=== PATIENT | female | born 1970 | race Caucasian/White ===

== ENCOUNTER 2024-09-30 12:25 | Inpatient (IN) ==
--- NOTE | 2024-09-30 13:06 | Emergency Department Note ---
Impression & Plan Ambulatory dysfunction, Encounter for rehabilitation evaluation ED Provider Note CHIEF COMPLAINT: Failure to thrive HISTORY OF PRESENTING ILLNESS: The patient is a 54-year-old female who arrives to the emergency department for evaluation of failure to thrive. The patient's daughter is at bedside, and states that the patient has unable to get around. She currently has urinary tract infection, and she "needs placed in a rehab.". She is currently in a walking boot due to an orthopedic surgery at [address], where she is to remain nonweightbearing for 10 weeks. She reports this was approximately 4 weeks ago. She states she was [facility], however she felt the care was unacceptable and signed out AMA. She states this occurred on Tuesday. She reports she has been having home health visit, who stated it is unsafe for her to be at home due to her nonweightbearing status. She reports she went to [facility], who was not able to place her in a skilled facility, and discharged her home. She states she was informed by her home health to visit a different medical system, for help. She states she is here today for placement, with no other complaints. REVIEW OF SYSTEMS: See HPI for pertinent positives and pertinent negatives. ALLERGIES: See below MEDICATIONS: See below PAST MEDICAL HISTORY: See below PHYSICAL EXAM: VITALS: Vitals are noted on the nurse's note and reviewed by myself. Vital signs stable. GENERAL: 54-year-old female, in no acute distress, nondiaphoretic, well- developed well-nourished. SKIN: The skin was without rashes, erythema, edema, or bruising. HEAD: Normocephalic atraumatic. HEART: Regular rate and rhythm without murmurs gallops or rubs. LUNGS: Clear to auscultation bilaterally without wheezes, rales or rhonchi. No retractions or accessory muscle use. ABDOMEN: Positive bowel sounds x 4. Soft, nontender, without masses or organomegaly. Caballero sign negative. No guarding or rebound tenderness. MUSCULOSKELETAL: Walking boot in place to the left lower extremity, no TTP, no erythema, edema, present. NEURO: Patient was alert and oriented to person place and time. No focal neurological deficits. DIFFERENTIAL DIAGNOSIS: Ambulatory dysfunction, inability to perform ADLs, unsafe living conditions, as well as other pathologies. ED COURSE AND MEDICAL DECISION MAKING: HISTORY FROM INDEPENDENT HISTORIAN: Daughter at bedside as secondary historian. INTERPRETATION OF LABS: I interpreted the labs with full lab results as below in the lab section of this note. Pertinent lab results discussed in the MDM section below. INTERPRETATION OF IMAGING: Imaging studies were interpreted by myself and read by radiology as per the imaging section of this note. MDM SUMMARY: The patient is a pleasant 54-year-old female who arrives to the emergency department for evaluation of the above-stated complaint. Initial workup was performed in triage including a saline lock, CBC, CMP, PT/INR, PTT, troponin, TSH, magnesium, chest x-ray, and EKG. Lab work is unremarkable. Urinalysis negative for infection. Chest x-ray imaging shows no acute cardiopulmonary process per my interpretation. EKG shows normal sinus and rate of 60 bpm, with no ST elevation depression or ectopy. No previous for comparison. The patient was able to successfully pass an ambulatory trial, with a walker in her walking boot. Upon daughter's arrival, she states the patient is to be nonweightbearing, although placed in a walking boot by orthopedic surgery. She reports she would like the patient admitted, for placement, and that a pen[facility]entiary facility. I spoke with Dr. Malcolm from the [facility], hospitalist services, who agreed to accept the patient under his care. Please refer to his documentation for further patient workup. DIAGNOSIS: Ambulatory dysfunction, rehab placement The chart was completed utilizing [employer] Speech voice recognition software. Grammatical errors, random word insertions, pronoun errors, and incomplete sentences are an occasional consequence of this system due to software limitations, ambient noise, and hardware issues. Any formal questions or concerns about the content, text, or information contained within the body of this dictation should be directly addressed to the provider for clarification. Past Med/Surg History Problem List (Updated 09/30/24 @ 19:15 by SHERRILL Stallworth) Encounter for rehabilitation evaluation (Acute) Ambulatory dysfunction (Acute) Social History Smoking Status: Never smoker Preferred Language: Syrian Feels Safe at Home: Yes Allergies Allergies Allergy/AdvReac Type Severity Reaction Status Date / Time codeine Allergy Severe SHORT OF Verified 09/30/24 16:16 BREATH/ITCHY RASH/"HOT&COLD FEELING" butorphanol [From Stadol] Allergy Intermediate ITCHY/"HOT&COLD Verified 09/30/24 16:16 FEELING" Home Meds Home Medications Medication Instructions Recorded Confirmed acetaminophen 500 mg tablet 1,000 mg PO Q8H PRN Pain 09/30/24 09/30/24 (Tylenol Extra Strength) amlodipine 10 mg tablet 10 mg PO DAILY 09/30/24 09/30/24 cefuroxime axetil 500 mg tablet 500 mg PO BID 09/30/24 09/30/24 enoxaparin 40 mg/0.4 mL 40 mg subcut BID 09/30/24 09/30/24 subcutaneous syringe furosemide 40 mg tablet 40 mg PO DAILY 09/30/24 09/30/24 melatonin 3 mg tablet 3 mg PO HS PRN Sleep 09/30/24 09/30/24 methocarbamol 750 mg tablet 750 mg PO BID PRN MUSCLE SPASMS 09/30/24 09/30/24 metoprolol tartrate 50 mg tablet 50 mg PO BID 09/30/24 09/30/24 omeprazole 20 mg tablet,delayed 20 mg PO DAILY PRN ACID STOMACH 09/30/24 09/30/24 release oxycodone 5 mg tablet 5 mg PO QID PRN Pain 09/30/24 09/30/24 spironolactone 25 mg tablet 25 mg PO DAILY 09/30/24 09/30/24 Results & Data (ED) Vital Signs Vital Signs - 24 hr 09/30/24 12:35 09/30/24 14:29 09/30/24 16:35 Temperature 36.0 C L Temperature Source Temporal Artery Scan Pulse Rate 67 Pulse Rate [Left Finger] 76 78 Pulse Rhythm Regular Pulse Strength Normal Respiratory Rate 20 18 18 Respiratory Effort / Characteristics Non-Labored Spontaneous Non-Labored Spontaneous Non-Labored Spontaneous Respiratory Depth Normal Normal Normal Respiratory Pattern Regular Blood Pressure 138/75 Blood Pressure [Right Arm] 141/66 H 163/79 H Blood Pressure Mean 96 Blood Pressure Mean [Right Arm] 91 107 Blood Pressure Position Sitting Blood Pressure Position [Right Arm] Lying Pulse Oximetry 100 99 98 Oxygen Delivery Method Room Air Room Air Room Air Sepsis Recent Fever Within 48 Hours No Sepsis New/Unexplained Change in Mental Status No Sepsis Action Taken by Nursing No Action Required 09/30/24 18:00 Temperature Temperature Source Pulse Rate Pulse Rate [Left Finger] 68 Pulse Rhythm Pulse Strength Respiratory Rate 16 Respiratory Effort / Characteristics Non-Labored Spontaneous Respiratory Depth Normal Respiratory Pattern Blood Pressure Blood Pressure [Right Arm] 135/59 L Blood Pressure Mean Blood Pressure Mean [Right Arm] 84 Blood Pressure Position Blood Pressure Position [Right Arm] Pulse Oximetry 97 Oxygen Delivery Method Room Air Sepsis Recent Fever Within 48 Hours Sepsis New/Unexplained Change in Mental Status Sepsis Action Taken by Retirement Medications Current Medication List: was personally reviewed by me Laboratory Data Attestation: I reviewed the patient's lab results. 09/30/24 13:12 09/30/24 13:12 Lab Results 09/30/24 09/30/24 09/30/24 Range/Units 13:06 13:12 14:07 WBC 9.06 (4.8-10.8) K/ul RBC 5.01 (4.20-5.40) M/uL Hgb 14.4 (12.0-16.0) g/dl Hct 43.5 (37.0-47.0) % MCV 86.8 (80.0-100.0) fL MCH 28.7 (25.0-34.0) pg MCHC 33.1 (32.0-36.0) g/dL RDW Std Deviation 47.7 H (36.4-46.3) fL RDW Coeff of Linda 14.9 H (11.5-14.5) % Plt Count 317 (130-400) K/uL MPV 9.7 (9.4-12.4) fL Immature Gran % (Auto) 0.3 % Neut % (Auto) 64.1 % Lymph % (Auto) 22.6 % [place] % (Auto) 7.8 % Eos % (Auto) 4.6 % Baso % (Auto) 0.6 % Neut # (Auto) 5.80 (1.40-6.50) K/uL Lymph # (Auto) 2.05 (1.20-3.40) K/uL [place] # (Auto) 0.71 H (0.11-0.59) K/uL Eos # (Auto) 0.42 (0.00-0.50) K/uL Baso # (Auto) 0.05 (0.00-0.20) K/uL Immature Gran # (Auto) 0.03 (0.01-0.20) K/uL PT Cancelled 10.9 INR Cancelled 1.0 APTT Cancelled 24 PTT Ratio Cancelled 0.9 Sodium 139 (136-145) mmol/L Potassium 3.7 (3.5-5.1) mmol/L Chloride 102 (98-107) mmol/L Carbon Dioxide 28 (21-32) mmol/L Anion Gap 9 (3-11) BUN 17 (6-23) mg/dl Creatinine 0.87 (0.6-1.2) mg/dl Est Cr Clr Drug Dosing Not Reportable eGFR 79.12 BUN/Creatinine Ratio 19.5 (10-20) Glucose 108 H (70-99(Fasting)) mg/dl Calcium 9.4 (8.6-10.3) mg/dl Magnesium 2.3 (1.7-2.4) mg/dl Total Bilirubin 0.5 (0.2-1.0) mg/dl AST 20 (13-39) U/L ALT 22 (7-52) U/L Alkaline Phosphatase 99 (34-104) U/L Troponin I High Sens < 2.3 (0-14) pg/ml Total Protein 7.7 (6.0-8.3) gm/dl Albumin 4.5 (3.4-5.0) gm/dl Globulin 3.2 (2.5-4.0) gm/dl Albumin/Globulin Ratio 1.4 (0.9-2) TSH 1.608 (0.300-4.500) uIu/ml Urine Color Yellow Urine Appearance Clear (Clear) Urine pH 5.0 (4.5-7.5) Ur Specific [place] 1.017 (1.000-1.030) Urine Protein Negative (Negative) Urine Glucose (UA) Negative (Negative) Urine Ketones Negative (Negative) Urine Blood Negative (Negative) Urine Nitrite Negative (Negative) Urine Bilirubin Negative (Negative) Urine Urobilinogen Negative (Negative) Ur Leukocyte Esterase Negative (Negative) Imaging Data Attestation: I personally reviewed and interpreted this imaging study as follows: Radiologist's Impression: Chest X-Ray 09/30/24 12:39 INDICATION: Cough. TECHNIQUE: Frontal radiograph of the chest. COMPARISON: None. FINDINGS: Mild cardiomegaly. Pulmonary vasculature appear within normal limits. No infiltrate, pleural effusion or pneumothorax. No acute osseous abnormality evident. IMPRESSION: No acute cardiopulmonary process. Electronically signed by Nilo Barrera 09-30-2024 2:07 PM Discharge Plan Visit Data Chief Complaint: Illness Stated Complaint: FAILURE TO THRIVE, PHYSICAL REHAB,CONGESTION/COUGH ED Provider: Basim Butts ED Midlevel Provider: Deloris Rene Discharge Problem: Ambulatory dysfunction, Encounter for rehabilitation evaluation Forms Stand Alone Forms: [facility], Important Visit Information Prescriptions Prescriptions: No Action furosemide 40 mg tablet 40 mg PO DAILY melatonin 3 mg Tablet 3 mg PO HS PRN (Reason: Sleep) acetaminophen [Tylenol Extra Strength] 500 mg Tablet 1,000 mg PO Q8H PRN (Reason: Pain) spironolactone 25 mg tablet 25 mg PO DAILY methocarbamol 750 mg Tablet 750 mg PO BID PRN (Reason: MUSCLE SPASMS) amlodipine 10 mg tablet 10 mg PO DAILY metoprolol tartrate 50 mg tablet 50 mg PO BID cefuroxime axetil 500 mg tablet 500 mg PO BID Rx Instructions: STARTED 09/28/24 FOR 7 DAYS oxycodone 5 mg tablet 5 mg PO QID PRN (Reason: Pain) enoxaparin 40 mg/0.4 mL syringe 40 mg subcut BID Rx Instructions: PER [facility] AT [facility] omeprazole 20 mg Tablet,Delayed Release (Dr/Ec) 20 mg PO DAILY PRN (Reason: ACID STOMACH) Referrals Referrals: PCP,NO [Physician] -
[2024-09-30 13:18] LABS: Appearance Urine Clear (Clear); Bilirubin Urine Negative (Negative); Blood Urine Negative (Negative); Color Urine Yellow; Glucose Urine UA Negative (Negative); Ketones Urine Negative (Negative); Leukocyte Esterase Urine Negative (Negative); Nitrite Urine Negative (Negative); Protein Urine Negative (Negative); Specific Gravity Urine 1.017 (1.000-1.030); Urobilinogen Urine Negative (Negative)
[2024-09-30 13:31] LABS: Basophils # (auto) 0.05 K/uL (0.00-0.20); Basophils % (auto) 0.6 %; Eosinophils # (auto) 0.42 K/uL (0.00-0.50); Eosinophils % (auto) 4.6 %; Hematocrit (blood only) 43.5 % (37.0-47.0); Hemoglobin 14.4 g/dl (12.0-16.0); Immature Granulocytes # (auto) 0.03 K/uL (0.01-0.20); Immature Granulocytes % (auto) 0.3 %; Lymphocytes # (auto) 2.05 K/uL (1.20-3.40); Lymphocytes % (auto) 22.6 %; Mean Corpuscular Hemoglobin 28.7 pg (25.0-34.0); Mean Corpuscular Hgb Conc 33.1 g/dL (32.0-36.0); Mean Corpuscular Volume 86.8 fL (80.0-100.0); Mean Platelet Volume 9.7 fL (9.4-12.4); Monocytes # (auto) 0.71 K/uL (0.11-0.59); Monocytes % (auto) 7.8 %; Neutrophils % (auto) 64.1 %; Platelet Count 317 K/uL (130-400); RDW Coefficient of Variation 14.9 % (11.5-14.5); RDW Standard Deviation 47.7 fL (36.4-46.3); Red Blood Count 5.01 M/uL (4.20-5.40); White Blood Count 9.06 K/ul (4.8-10.8)
[2024-09-30 13:49] LABS: Alanine Aminotransferase 22 U/L (7-52); Albumin Globulin Ratio 1.4 (0.9-2); Albumin Level 4.5 gm/dl (3.4-5.0); Alkaline Phosphatase 99 U/L (34-104); Anion Gap 9 (3-11); Aspartate Aminotransferase 20 U/L (13-39); BUN Creatinine Ratio 19.5 (10-20); Bilirubin,Total 0.5 mg/dl (0.2-1.0); Blood Urea Nitrogen 17 mg/dl (6-23); Calcium 9.4 mg/dl (8.6-10.3); Carbon Dioxide 28 mmol/L (21-32); Chloride 102 mmol/L (98-107); Globulin 3.2 gm/dl (2.5-4.0); Glucose 108 mg/dl (70-99(Fasting)); Magnesium 2.3 mg/dl (1.7-2.4); Potassium 3.7 mmol/L (3.5-5.1); Sodium 139 mmol/L (136-145); Total Protein 7.7 gm/dl (6.0-8.3)
[2024-09-30 13:55] LABS: Troponin I High Sensitivity < 2.3 pg/ml (0-14)
[2024-09-30 14:04] LABS: Thyroid Stimulating Hormone 1.608 uIu/ml (0.300-4.500)
--- NOTE | 2024-09-30 14:07 | XRay Report ---
INDICATION: Cough. TECHNIQUE: Frontal radiograph of the chest. COMPARISON: None. FINDINGS: Mild cardiomegaly. Pulmonary vasculature appear within normal limits. No infiltrate, pleural effusion or pneumothorax. No acute osseous abnormality evident. IMPRESSION: No acute cardiopulmonary process. Electronically signed by Nilo Barrera 09-30-2024 2:07 PM
[2024-09-30 14:52] LABS: Partial Thromboplastin Ratio 0.9; Partial Thromboplastin Time 24 Seconds (21-31); Prothrombin Time 10.9 Seconds (9.0-12.0)
--- NOTE | 2024-09-30 20:29 | History & Physical Report ---
Date of Service September 30, 2024 Assessment & Plan (1) Ankle fracture: (2) Depression: (3) Hypertension: (4) Venous stasis: (5) DVT prophylaxis: Plan left ankle fracture/nonweightbearingbarbara is not safe at home, appears to require subacute rehab while she is nonweightbearing, and then likely full rehab after. Given that she has a degree of new pain and was trying to not bear weight but also having hard time not doing that once she was home without as much supportcheck x-rays to ensure no RACHAEL hardware fracture/displacement/etc. Her orthopedic follow-up was to be 10/[address] Nilo Singh [facility] orthopedics [phone] we have x-rays will want to review with himif there is sign that she is healing better possibly we could shorten the nonweightbearing time. PT/OT eval and treat. Anticipate SNF. Discussed with patient the unfortunate "lousiness" of the current phase of her situation and offered support and encouragement to try to help her get through it. Continue her home meds for pain control. Given that this orthopedic surgeon has never seen her before, and they are not sure who actually did the surgery, I am not sure if we are able to get the same guidance from him, may require consult for in-house foot and ankle for evaluation depending on her overall situation. depressionbarbara openly discussed a lot with her depressionI offered support and encouragement as well as guidance. Discussed overall management of depression and utilizing skills that she is already working rudy.e. writing about her thoughts and feelingsto try to help improve her situation. Also discussed that currently her situation does have a lot of unfortunate misery to it, and we discussed how to live in the moment not necessarily fight against it whenever it cannot be changed at this time. Outpatient follow-up otherwise. HypertensionHome meds venous stasisshaguilar carries a diagnosis of CHF according to her daughterbut she does not appear to have pulmonary edema/dyspnea/etc.I suspect it is venous stasis. Hold Lasix. Follow calf tendernessI suspect it is all due to venous stasis from immobility, but given her fracture/immobility/etc., in spite of the fact that she is on Lovenox for DVT prophylaxis, check venous Dopplers DVT prophylaxisLovenox dispositionadmit to medical, anticipate SNF on discharge. Admission and Anticipated Discharge Date Admission Date: September 30, 2024 History of Present Illness Chief Complaint: Not safe at home Primary Care Provider: Tiffany Hills PA-C patient is a very pleasant 54-year-old female. She broke her ankle and had surgery at [facility]. She was told she needed to be nonweightbearing for 10 weeks and was sent to SNF. At the SNF she was at, she was getting very frustrated she felt like she was not being well cared for, felt like she was spending as much time trying to help take care of her roommate as she was trying to get better, and felt like with nonweightbearing the therapy was not doing much for her. With that, she left SNF AMA, but then quickly at home she/her family realized that this was not going to go well. With nonweightbearing and lack of support, she was concerned about failing, concerned about hurting herself more, [facility] and [facility] her [facility]. She came here to the hospital for further evaluation. She has some pain in her left ankle, not necessarily that much new or different than before but is a little bit hard to tell if maybe it slightly worse after moving, and she has slightly worse bilateral lower extremity edema and calf tenderness. Allergies Allergy/AdvReac Type Severity Reaction Status Date / Time codeine Allergy Severe SHORT OF Verified 09/30/24 16:16 BREATH/ITCHY RASH/"HOT&COLD FEELING" butorphanol [From Stadol] Allergy Intermediate ITCHY/"HOT&COLD Verified 09/30/24 16:16 FEELING" Home Medications Medication Instructions Recorded Confirmed Type acetaminophen 500 mg tablet 1,000 mg PO Q8H PRN Pain 09/30/24 09/30/24 History (Tylenol Extra Strength) amlodipine 10 mg tablet 10 mg PO DAILY 09/30/24 09/30/24 History cefuroxime axetil 500 mg tablet 500 mg PO BID 09/30/24 09/30/24 History enoxaparin 40 mg/0.4 mL 40 mg subcut BID 09/30/24 09/30/24 History subcutaneous syringe furosemide 40 mg tablet 40 mg PO DAILY 09/30/24 09/30/24 History melatonin 3 mg tablet 3 mg PO HS PRN Sleep 09/30/24 09/30/24 History methocarbamol 750 mg tablet 750 mg PO BID PRN MUSCLE SPASMS 09/30/24 09/30/24 History metoprolol tartrate 50 mg tablet 50 mg PO BID 09/30/24 09/30/24 History omeprazole 20 mg tablet,delayed 20 mg PO DAILY PRN ACID STOMACH 09/30/24 09/30/24 History release oxycodone 5 mg tablet 5 mg PO QID PRN Pain 09/30/24 09/30/24 History spironolactone 25 mg tablet 25 mg PO DAILY 09/30/24 09/30/24 History Past Med/Surg History Problem List (Updated 09/30/24 @ 20:25 by Reagan Malcolm DO) DVT prophylaxis Venous stasis Hypertension Depression Ankle fracture Encounter for rehabilitation evaluation (Acute) Ambulatory dysfunction (Acute) Social History Smoking Status: Never smoker Preferred Language: Trinidadian Feels Safe at Home: Yes Review of Systems Review of Systems: All systems reviewed & are unremarkable except as noted in HPI & below Physical Exam Physical Exam: In general she is awake and alert pleasant does get tearful at times. No distress. HEENT normocephalic atraumatic mucous membranes moist. Cardio is regular without rubs murmurs or gallops. Lungs clear to auscultation bilaterally no rales rhonchi wheeze with good effort. Abdomen is soft nondistended nontender no masses organomegaly. Extremities show diffuse bilateral lower extremity probably 12+ edema she has bilateral calf tenderness although not really much erythema may be slightly on the right side but definitely not a hot/tender erythema more of a dull redness, left none. Her left is in a boot and wrapped, removing the boot and wrap shows that the wrap was holding down a lot of edema and she is a bit more edematous proximal, incisions appear to be clean/dry/intact, but she is diffusely tender all around her ankle and her calf. Neuro shows no focal deficits. Results & Data Results & Data Vital Signs (Past 12 Hours) Vital Signs Temp Pulse Pulse Resp BP BP Pulse Ox 09/30/24 19:58 74 09/30/24 18:00 68 16 135/59 L 97 09/30/24 16:35 78 18 163/79 H 98 09/30/24 14:29 76 18 141/66 H 99 09/30/24 12:35 96.8 F L 67 20 138/75 100 O2 Del Method 09/30/24 19:58 09/30/24 18:00 Room Air 09/30/24 16:35 Room Air 09/30/24 14:29 Room Air 09/30/24 12:35 Room Air Code Status & VTE Plan VTE Prophylaxis Plan VTE Prophylaxis will be ordered: Yes PG Care Time/CCT Total # of Minutes Spent Total Time Spent with Patient: Total time spent is greater than 50% in coordination of care (as documented) at patient's floor/unit and/or counseling patient: Coding Level of Care Code 49321 INT INP/OBS CARE 375MIN Diagnoses Ankle fracture S82.899A Depression F32.A Hypertension I10 Venous stasis I87.8 DVT prophylaxis Z29.9
[2024-09-30] MEDS ORDERED: POLYETHYLENE (MIRALAX) 17 GM PACK PO PRN (20:48)
[2024-09-30] MEDS ORDERED: MAGNESIUM HYDROXIDE SUSP 30 ML UDC PO PRN (20:48)
[2024-09-30] MEDS ORDERED: ALUMINUM/MAGNESIUM SUSP 30 ML UDC PO PRN (20:48)
[2024-09-30] MEDS: ENOXAPARIN INJ 40 MG/0.4 ML SYR SQ SCH (22:37)
[2024-09-30] MEDS: METOPROLOL TARTRATE 50 MG TAB PO SCH (22:40)
[2024-09-30] MEDS: MELATONIN 3 MG TAB PO PRN (22:40)
[2024-09-30] MEDS: METHOCARBAMOL 750 MG TABLET PO PRN (22:40)
[2024-09-30] MEDS: cefUROXime axetil 500 MG TAB PO SCH (22:40)
--- NOTE | 2024-09-30 23:20 | XRay Report ---
Exam(s): XR LEFT ANKLE, 3+ views EXAM: XR Left Ankle Complete, 3 or More Views CLINICAL HISTORY: Reason for exam: ankle fracture, new pain, ?periprosthetic fx. TECHNIQUE: Frontal, lateral and oblique views of the left ankle. COMPARISON: No relevant prior studies available. FINDINGS: Bones/joints: A plate and multiple lateral screws bridging a distal fibular fracture with good alignment and positioning. An additional screw bridges a fracture of the medial malleolus. There is good positioning. Fracture lucencies are still evident. Soft tissues: There appears to be generalized soft tissue swelling. IMPRESSION: Previous internal fixation of medial malleolar and distal fibular fractures. Electronically signed by: Janusz Nazario MD 09/30/24 23:19 PM
[2024-10-01] MEDS: ACETAMINOPHEN 500 MG TAB PO PRN (01:07)
[2024-10-01] MEDS: oxyCODONE HCL IR 5 MG TAB (IMMEDIATE RELEASE) PO PRN (01:09)
--- NOTE | 2024-10-01 01:15 | Ultrasound Report ---
EXAM: US venous doppler LE BI CLINICAL HISTORY: Immobility, pain - eval for DVT. TECHNIQUE: Ultrasound examination of bilateral lower extremity veins was performed in real time and duplex. One or more of the following were performed: spectral analysis, resistive index, waveform analysis, and pulsed Doppler. COMPARISON: None. FINDINGS: Inability to tolerate compression in certain areas of bilateral lower extremity due to pain. Normal phasic, non-pulsatile, and spontaneous flow is noted in bilateral common femoral, superficial femoral, popliteal, and peroneal veins. Visualized veins of both lower extremities demonstrate normal compressibility. No sonographic evidence of acute deep vein thrombosis (DVT) is detected in the visualized veins of both lower extremities. The left posterior tibial vein is not examined due to the patient's inability to tolerate augmentation and pressure by the probe. Compression and Augmentation: All evaluated veins compress fully with applied transducer pressure. Augmentation of venous flow is noted with distal compression. Additional Findings: No evidence of intraluminal thrombus. IMPRESSION: No sonographic evidence of acute DVT is detected in above mentioned bilateral examined veins. The left posterior tibial vein is not examined due to the patient's inability to tolerate augmentation and pressure by the probe. Disclaimer: DVT could be missed early in the disease when clot burden is minimal. For patients with moderate and high pretest probability of DVT and negative ultrasound, the [employer] clinical guidelines recommend testing with a D-dimer assay or repeat ultrasound in 5-7 days. If symptoms worsen, the Society of radiologists in ultrasound recommends repeating ultrasound even earlier. Electronically signed by Mahin Pemberton 10-01-2024 01:15 AM
--- NOTE | 2024-10-01 08:16 | Electrocardiogram Report ---
Test Reason : Blood Pressure : */* mmHG Vent. Rate : 68 BPM Atrial Rate : 68 BPM P-R Int : 184 ms QRS Dur : 84 ms QT Int : 392 ms P-R-T Axes : 42 20 25 degrees QTcB Int : 416 ms Normal sinus rhythm Cannot rule out Anterior infarct , age undetermined Abnormal ECG No previous ECGs available Confirmed by Ade Paige (Ivy) on 10/01/2024 8:15:43 AM Referred By: REFERRED SELF Confirmed By: Ade Paige
[2024-10-01] MEDS: amLODIPine BESYLATE 5 MG TAB PO SCH (09:39)
[2024-10-01] MEDS: FUROSEMIDE 40 MG TAB PO SCH (09:39)
[2024-10-01] MEDS: SPIRONOLACTONE 25 MG TAB PO SCH (09:40)
--- NOTE | 2024-10-01 14:29 | Hospitalist Progress Note ---
Date of Service October 01, 2024 Assessment & Plan (1) Ankle fracture: (2) Depression: (3) Hypertension: (4) Venous stasis: (5) DVT prophylaxis: Plan This is a 54 year old female with past medical history of venous stasis, morbid obesity, hypertension who presented to the hospital on 09/30 for a left ankle fracture. #Left ankle fracture Patient w/ ankle fracture ~ 4 weeks ago had surgery at [facility]. Reports she fell down the stairs twice and had extensive surgery. Patient then went to [facility] for rehab and signed out AMA due to not feeling she was being adequately treated. She then returned home and was unable to care for herself so she presented back to [facility]. was unable to find a SNF and patient was discharged home. She presented to our facility with the hopes of SNF rehab placement. Patient unsure of her surgeon but her follow up surgeon is Dr. Nilo Singh @ . - XR sent to his office today, awaiting to hear further recommendations. Left Ankle XR: previous internal fixation of medial malleolar & distal fibular fx Doppler US: negative for DVT. Continue pain management, Ceftin, and PT/OT as tolerated. #Depression Continue to offer support and encouragement. Continue management of depression & utilizing skills (writing out thoughts and feelings) Psych liaison if needed Outpatient follow up. Chronic conditions: HTN: Amlodipine, Metoprolol Venous stasis: Lasix DVT prophylaxis: Lovenox Code: full Patient medically stable for discharge, pending placement. Discussed w/ CM extensively 10/01. Admission and Anticipated Discharge Date Admission Date: September 30, 2024 Supervising Physician Co-Signing Physician Notes Attending Attestation - Chart reviewed, care plan d/w RUFINO Sepulveda. I agree w/ the macias components of her documentation. While here would check 25-OH vit D level due to recent ankle Fx. Dispo planning for placement. Richard Corrales MD Subjective Patient seen and examined this morning. Patient reports to be feeling okay today. She reports that she was experiencing some lower extremity discomfort following her doppler US. She admits to left ankle pain. Reports she was previously at [facility] for rehab and she felt she was not getting properly managed there. Reports that she was helping her roommate more than she was getting rehab. Reports she was stressed and frustrated and ultimately left. Physical Exam Constitutional: WD/WN, vitals as above Eyes: PERRL, conjunctivae normal, anicteric sclerae Respiratory: breathing unlabored Cardiovascular: well perfused Musculoskeletal: no cyanosis or clubbing, extremities motor strength 5/5 Psychiatric: A+Ox3, euthymic affect Results & Data Results & Data Vital Signs (Past 12 Hours) Vital Signs Temp Pulse Resp BP Pulse Ox O2 Del Method 10/01/24 11:21 36.6 C 65 18 106/66 94 Room Air 10/01/24 07:53 36.6 C 55 L 16 112/70 95 Room Air PG Care Time/CCT Total # of Minutes Spent Total Time Spent with Patient: Total time spent is greater than 50% in coordination of care (as documented) at patient's floor/unit and/or counseling patient: Coding Level of Care Code 56321 SUB INP/OBS CARE 235MIN Diagnoses Ankle fracture S82.899A Depression F32.A Hypertension I10 Venous stasis I87.8 DVT prophylaxis Z29.9
[2024-10-02] MEDS: ONDANSETRON INJ 2 MG/ML 2 ML VIAL IV PRN (01:00)
[2024-10-02] MEDS: PROCHLORPERAZINE 5 MG in SYRINGE 4 ML IV ONE (04:10)
--- NOTE | 2024-10-02 14:28 | Hospitalist Progress Note ---
Date of Service October 02, 2024 Assessment & Plan (1) Ankle fracture: (2) Depression: (3) Hypertension: (4) Venous stasis: (5) DVT prophylaxis: Plan This is a 54 year old female with past medical history of venous stasis, morbid obesity, hypertension who presented to the hospital on 09/30 for a left ankle fracture. #Left ankle fracture Patient w/ ankle fracture ~ 4 weeks ago had surgery at [facility]. Reports she fell down stairs twice and had extensive surgery. Patient then went to [facility] for rehab and signed out AMA due to not feeling she was being adequately treated. She then returned home and was unable to care for herself so she presented back to [facility]. was unable to find a SNF and patient was discharged home. She presented to our facility with the hopes of SNF rehab placement. Was able to obtain records from and reviewed operative report on 10/02 - patient had left trimalleolar ankle fx w/ unstable syndesmosis. She underwent ORIF left trimalleolar ankle fx w/o fixation of posterior malleous syndesmotic fixation on 08/29/24 w/ Dr. Reyes. Awaiting to hear further recommendations from Dr. Singh, patient's surgeon she follows w/ in the area . Left Ankle XR: previous internal fixation of medial malleolar & distal fibular fx Doppler US: negative for DVT. Continue pain management, Ceftin, and PT/OT as tolerated. Check vitamin D in AM #Depression Continue to offer support and encouragement. Continue management of depression & utilizing skills (writing out thoughts and feelings) Psych liaison if needed Outpatient follow up. Chronic conditions: HTN: Amlodipine, Metoprolol Venous stasis: Lasix Added Tessalon Perls prn for cough 10/02 at patient request. DVT prophylaxis: Lovenox Code: full Patient medically stable for discharge, pending placement. Admission and Anticipated Discharge Date Admission Date: September 30, 2024 Supervising Physician Co-Signing Physician Notes Attending Attestation - Chart reviewed, care plan d/w RUFINO Sepulveda. I agree w/ the macias components of her documentation. Dispo planning for placement. Richard Corrales MD Subjective Patient seen and examined this morning. Patient reports a cough today that she has been struggling with for awhile. States she had a cold a few weeks ago and the cough has lingered. She reports she typically uses Tessalon Perls at home and it clears it up. She denied any seasonal allergies. Physical Exam Constitutional: WD/WN, vitals as above Eyes: PERRL, conjunctivae normal, anicteric sclerae Respiratory: breathing unlabored Cardiovascular: well perfused Psychiatric: A+Ox3, euthymic affect Results & Data Results & Data Vital Signs (Past 12 Hours) Vital Signs Temp Pulse Resp BP Pulse Ox O2 Del Method 10/02/24 07:24 36.5 C 58 L 14 100/65 95 Room Air PG Care Time/CCT Total # of Minutes Spent Total Time Spent with Patient: Total time spent is greater than 50% in coordination of care (as documented) at patient's floor/unit and/or counseling patient: Coding Level of Care Code 75008 SUB INP/OBS CARE 235MIN Diagnoses Ankle fracture S82.899A Depression F32.A Hypertension I10 Venous stasis I87.8 DVT prophylaxis Z29.9
[2024-10-02] MEDS: BENZONATATE 100 MG CAPSULE PO PRN (15:59)
[2024-10-03 07:37] LABS: Hematocrit (blood only) 37.7 % (37.0-47.0); Hemoglobin 12.5 g/dl (12.0-16.0); Mean Corpuscular Hemoglobin 28.7 pg (25.0-34.0); Mean Corpuscular Hgb Conc 33.2 g/dL (32.0-36.0); Mean Corpuscular Volume 86.7 fL (80.0-100.0); Mean Platelet Volume 9.8 fL (9.4-12.4); Platelet Count 254 K/uL (130-400); RDW Coefficient of Variation 14.7 % (11.5-14.5); RDW Standard Deviation 47.6 fL (36.4-46.3); Red Blood Count 4.35 M/uL (4.20-5.40); White Blood Count 7.06 K/ul (4.8-10.8)
[2024-10-03 07:58] LABS: Creatinine Clr Calc Pharmacy 136.1 ml/min
--- NOTE | 2024-10-03 14:30 | Hospitalist Progress Note ---
Date of Service October 03, 2024 Assessment & Plan (1) Ankle fracture: (2) Depression: (3) Hypertension: (4) Venous stasis: (5) DVT prophylaxis: Plan This is a 54 year old female with past medical history of venous stasis, morbid obesity, hypertension who presented to the hospital on 09/30 for a left ankle fracture. #Left ankle fracture Patient w/ ankle fracture ~ 4 weeks ago had surgery at [facility]. Reports she fell down stairs twice and had extensive surgery. Patient then went to [facility] for rehab and signed out AMA due to not feeling she was being adequately treated. She then returned home and was unable to care for herself so she presented back to . was unable to find a SNF and patient was discharged home. She presented to our facility with the hopes of SNF rehab placement. Was able to obtain records from and reviewed operative report on 10/02 - patient had left trimalleolar ankle fx w/ unstable syndesmosis. She underwent ORIF left trimalleolar ankle fx w/o fixation of posterior malleolus syndesmotic fixation on 08/29/24 w/ Dr. Reyes. Awaiting to hear further recommendations from Dr. Singh, patient's surgeon she follows w/ in the area . Left Ankle XR: previous internal fixation of medial malleolar & distal fibular f x Doppler US: negative for DVT. Continue pain management, Ceftin, and PT/OT as tolerated. Vitamin D level low, started supplementation. #Depression Continue to offer support and encouragement. Continue management of depression & utilizing skills (writing out thoughts and feelings) Psych liaison if needed Outpatient follow up. Chronic conditions: HTN: Amlodipine, Metoprolol (switched dosing to AM and 1800 per patient request) Venous stasis: Lasix Added Tessalon Perls prn for cough 10/02 at patient request. DVT prophylaxis: Lovenox Code: full Patient medically stable for discharge, pending placement. Discussed w/ CM 10/03 Admission and Anticipated Discharge Date Admission Date: September 30, 2024 Supervising Physician Co-Signing Physician Notes Attending Attestation - Chart reviewed, care plan d/w RUFINO Sepulveda. I agree w/ the macias components of her documentation. Dispo planning for placement. Richard Corrales MD Subjective Patient seen and examined this morning. patient reports some nausea today. Reports she typically takes her metoprolol prior to breakfast & dinner. She reports it upsets her stomach if she takes it before bed. Denies any additional complaints. Physical Exam Constitutional: WD/WN, vitals as above Eyes: PERRL, conjunctivae normal, anicteric sclerae Respiratory: breathing unlabored Cardiovascular: well perfused Psychiatric: A+Ox3, euthymic affect Results & Data Results & Data Vital Signs (Past 12 Hours) Vital Signs Temp Pulse Resp BP Pulse Ox O2 Del Method 10/03/24 07:07 36.8 C 57 L 18 131/72 93 Room Air PG Care Time/CCT Total # of Minutes Spent Total Time Spent with Patient: Total time spent is greater than 50% in coordination of care (as documented) at patient's floor/unit and/or counseling patient: Coding Level of Care Code 67714 SUB INP/OBS CARE 2/35MIN Diagnoses Ankle fracture S82.899A Depression F32.A Hypertension I10 Venous stasis I87.8 DVT prophylaxis Z29.9
[2024-10-03] MEDS ORDERED: METOPROLOL TARTRATE 50 MG TAB PO SCH (18:00)
[2024-10-03] MEDS: METOPROLOL TARTRATE 50 MG TAB PO SCH (18:26)
[2024-10-04] MEDS: CHOLECALCIFEROL 125 MCG (5,000 UNITS) TAB PO SCH (08:11)
[2024-10-04] MEDS ORDERED: METOPROLOL TARTRATE 50 MG TAB PO SCH (09:00)
[2024-10-04] MEDS: POLYETHYLENE (MIRALAX) 17 GM PACK PO SCH (11:20)
--- NOTE | 2024-10-04 15:24 | Hospitalist Progress Note ---
Date of Service October 04, 2024 Assessment & Plan (1) Ankle fracture: (2) Depression: (3) Hypertension: (4) Venous stasis: (5) DVT prophylaxis: Plan This is a 54 year old female with past medical history of venous stasis, morbid obesity, hypertension who presented to the hospital on 09/30 for a left ankle fracture. #Left ankle fracture Patient w/ ankle fracture ~ 4 weeks ago had surgery at [facility]. Reports she fell down stairs twice and had extensive surgery. Patient then went to [facility] for rehab and signed out AMA due to not feeling she was being adequately treated. She then returned home and was unable to care for herself so she presented back to . was unable to find a SNF and patient was discharged home. She presented to our facility with the hopes of SNF rehab placement. Was able to obtain records from and reviewed operative report on 10/02 - patient had left trimalleolar ankle fx w/ unstable syndesmosis. She underwent ORIF left trimalleolar ankle fx w/o fixation of posterior malleolus syndesmotic fixation on 08/29/24 w/ Dr. Reyes. Awaiting to hear further recommendations from Dr. Singh, patient's surgeon she follows w/ in the area . Left Ankle XR: previous internal fixation of medial malleolar & distal fibular f x Doppler US: negative for DVT. Continue pain management, Ceftin, and PT/OT as tolerated. Vitamin D level low, started supplementation. #Constipation no BM ~ 3 days Added Miralax BID, can titrate back down to daily once patient begins to move bowels. #Depression Continue to offer support and encouragement. Continue management of depression & utilizing skills (writing out thoughts and feelings) Psych liaison if needed Outpatient follow up. Chronic conditions: HTN: Amlodipine, Metoprolol (switched dosing to AM and 1800 per patient request) Venous stasis: Lasix DVT prophylaxis: Lovenox Code: full Patient medically stable for discharge, pending placement. Admission and Anticipated Discharge Date Admission Date: September 30, 2024 Subjective Patient seen and examined this morning. Patient reports she has not had a BM for about 3 days now. Reports she was on a GI cocktail at rehab. Report some abdominal discomfort secondary to not being able to defecate but denies any other symptoms. Patient reports she is passing gas. Physical Exam Constitutional: WD/WN, vitals as above Eyes: PERRL, conjunctivae normal, anicteric sclerae Respiratory: breathing unlabored Cardiovascular: well perfused Psychiatric: A+Ox3, euthymic affect Results & Data Results & Data Vital Signs (Past 12 Hours) Vital Signs Temp Pulse Resp BP Pulse Ox O2 Del Method 10/04/24 08:13 62 10/04/24 07:35 Room Air 10/04/24 07:17 36.4 C L 55 L 18 116/68 92 Room Air PG Care Time/CCT Total # of Minutes Spent Total Time Spent with Patient: Total time spent is greater than 50% in coordination of care (as documented) at patient's floor/unit and/or counseling patient: Coding Level of Care Code 50557 SUB INP/OBS CARE 2/35MIN Diagnoses Ankle fracture S82.899A Depression F32.A Hypertension I10 Venous stasis I87.8 DVT prophylaxis Z29.9
--- NOTE | 2024-10-05 16:35 | Hospitalist Progress Note ---
Date of Service October 05, 2024 Assessment & Plan (1) Ankle fracture: (2) Depression: (3) Hypertension: (4) Venous stasis: (5) DVT prophylaxis: Plan This is a 54 year old female with past medical history of venous stasis, morbid obesity, hypertension who presented to the hospital on 09/30 for a left ankle fracture. Was able to obtain records from and operative report- patient had left trimalleolar ankle fx w/ unstable syndesmosis. She underwent ORIF left trimalleolar ankle fx w/o fixation of posterior malleolus syndesmotic fixation on 08/29/24 w/ Dr. Reyes. #Left ankle fracture Patient w/ ankle fracture ~ 4 weeks ago had surgery at [facility]. Reports she fell down stairs twice and had extensive surgery. Patient then went to [facility] for rehab and signed out AMA due to not feeling she was being adequately treated. She then returned home and was unable to care for herself so she presented back to . was unable to find a SNF and patient was discharged home. She presented to our facility with the hopes of SNF rehab placement. Left Ankle XR: previous internal fixation of medial malleolar & distal fibular fx Doppler US: negative for DVT. Continue pain management, Ceftin, and PT/OT as tolerated. Vitamin D level low, started supplementation. Called Dr. Singh's office 10/05 to get further recommendations as her non weight bearing status is up on 10/10. Unfortunately even though Dr. Singh saw patient in office ~ 2 weeks ago, he would not provide recommendations and encouraged us to follow with either her primary surgeon in [place]/in house provider. Was able to discuss w/ foot/ankle specialist Dr. Ocampo 10/05 who recommended starting with 25% weight bearing when able and slowly advance each week until full weight bearing in ~ 4 weeks. Plan for repeat x-ray on 10/09 and hopeful to start partial weight bearing on 10/10. Will update PT w/ these recommendations as well. Weight bearing status may be helpful w/ placement. #Constipation BM 10/05, patient reports was hard Miralax once daily, added stool softener once daily encourage PO hydration #Depression Continue to offer support and encouragement. Continue management of depression & utilizing skills (writing out thoughts and feelings) Psych liaison if needed Outpatient follow up. Chronic conditions: HTN: Amlodipine, Metoprolol (switched dosing to AM and 1800 per patient request) Venous stasis: Lasix DVT prophylaxis: Lovenox Code: full Patient medically stable for discharge, pending placement. Admission and Anticipated Discharge Date Admission Date: September 30, 2024 Subjective Patient seen and examined this afternoon. Patient was sitting in her wheel chair at time of encounter. Patient reports no symptoms today, she is hoping she can take a shower. Called Dr. Singh's office who refused to give further recommendations on her ankle status. Discussed plan of care with Dr. Kevon Ocampo today. Results & Data Results & Data Vital Signs (Past 12 Hours) Vital Signs Temp Pulse Resp BP Pulse Ox O2 Del Method 10/05/24 14:33 36.6 C 68 16 121/72 94 Room Air 10/05/24 07:32 Room Air 10/05/24 07:09 36.7 C 68 16 128/69 96 Room Air 10/05/24 06:19 36.8 C 66 16 105/73 95 Room Air PG Care Time/CCT Total # of Minutes Spent Total Time Spent with Patient: Total time spent is greater than 50% in coordination of care (as documented) at patient's floor/unit and/or counseling patient: Coding Level of Care Code 36171 SUB INP/OBS CARE 3/50MIN Diagnoses Ankle fracture S82.899A Depression F32.A Hypertension I10 Venous stasis I87.8 DVT prophylaxis Z29.9
[2024-10-06 07:43] LABS: Hemoglobin 12.7 g/dl (12.0-16.0); Mean Corpuscular Hemoglobin 28.2 pg (25.0-34.0); Mean Corpuscular Hgb Conc 32.6 g/dL (32.0-36.0); Mean Corpuscular Volume 86.5 fL (80.0-100.0); Mean Platelet Volume 9.9 fL (9.4-12.4); Platelet Count 273 K/uL (130-400); RDW Standard Deviation 47.7 fL (36.4-46.3); Red Blood Count 4.51 M/uL (4.20-5.40); White Blood Count 6.35 K/ul (4.8-10.8)
[2024-10-06 07:56] LABS: Creatinine Clr Calc Pharmacy 123.9 ml/min
[2024-10-06] MEDS: DOCUSATE SODIUM 100 MG CAP PO SCH (08:28)
[2024-10-06] MEDS: POLYETHYLENE (MIRALAX) 17 GM PACK PO SCH (08:28)
[2024-10-06] MEDS: PANTOprazole 40 MG TAB PO PRN (08:29)
--- NOTE | 2024-10-06 14:27 | Hospitalist Progress Note ---
Date of Service October 06, 2024 Assessment & Plan (1) Ankle fracture: (2) Depression: (3) Hypertension: (4) Venous stasis: (5) DVT prophylaxis: Plan This is a 54 year old female with past medical history of venous stasis, morbid obesity, hypertension who presented to the hospital on 09/30 for a left ankle fracture. Was able to obtain records from and operative report- patient had left trimalleolar ankle fx w/ unstable syndesmosis. She underwent ORIF left trimalleolar ankle fx w/o fixation of posterior malleolus syndesmotic fixation on 08/29/24 w/ Dr. Reyes. #Left ankle fracture Patient w/ ankle fracture ~ 4 weeks ago had surgery at [facility]. Reports she fell down stairs twice and had extensive surgery. Patient then went to [facility] for rehab and signed out AMA due to not feeling she was being adequately treated. She then returned home and was unable to care for herself so she presented back to . was unable to find a SNF and patient was discharged home. She presented to our facility with the hopes of SNF rehab placement. Left Ankle XR: previous internal fixation of medial malleolar & distal fibular fx Doppler US: negative for DVT. Continue pain management, Ceftin, and PT/OT as tolerated. Vitamin D level low, started supplementation. Was able to discuss w/ foot/ankle specialist Dr. Ocampo 10/05 who recommended starting with 25% weight bearing when able and slowly advance each week until full weight bearing in ~ 4 weeks. Plan for repeat x-ray on 10/09 and hopeful to start partial weight bearing on 10/10. Will plan to update PT w/ these recommendations as well. #Cough Patient w/ dry cough. Reports URI several weeks ago. Tessalon Perles/Mucinex PRN Start Claritin once daily. #Constipation BM 10/05, patient reports was hard Miralax and Colace daily. encourage PO hydration #Depression Continue to offer support and encouragement. Continue management of depression & utilizing skills (writing out thoughts and feelings) Psych liaison if needed Outpatient follow up. Chronic conditions: HTN: Amlodipine, Metoprolol (switched dosing to AM and 1800 per patient request) Venous stasis: Lasix DVT prophylaxis: Lovenox Code: full Patient medically stable for discharge, pending placement. Admission and Anticipated Discharge Date Admission Date: September 30, 2024 Subjective Patient seen and examined this morning. patient reports she did not sleep well because she had been coughing all night. Reports the Tessalon Perles are helpful but only work for a short period of time. She denied any additional complaints. Physical Exam Constitutional: WD/WN, vitals as above Eyes: PERRL, conjunctivae normal, anicteric sclerae Respiratory: normal respiratory effort Cardiovascular: well perfused Psychiatric: A+Ox3, euthymic affect Results & Data Results & Data Vital Signs (Past 12 Hours) Vital Signs Temp Pulse Resp BP Pulse Ox O2 Del Method 10/06/24 08:00 Room Air 10/06/24 07:28 36.7 C 60 18 137/55 L 92 Room Air PG Care Time/CCT Total # of Minutes Spent Total Time Spent with Patient: Total time spent is greater than 50% in coordination of care (as documented) at patient's floor/unit and/or counseling patient: Coding Level of Care Code 32522 SUB INP/OBS CARE 2/35MIN Diagnoses Ankle fracture S82.899A Depression F32.A Hypertension I10 Venous stasis I87.8 DVT prophylaxis Z29.9
[2024-10-06] MEDS: guaiFENesin 600 MG TABCR PO PRN (22:54)
[2024-10-06] MEDS: COUGH DROP (SUGAR FREE) LOZ 24 LOZ/1 BOX BUCCAL PRN (22:54)
[2024-10-07] MEDS: LORATADINE 10 MG TAB PO SCH (08:01)
--- NOTE | 2024-10-07 13:03 | Hospitalist Progress Note ---
Date of Service October 07, 2024 Assessment & Plan (1) Ankle fracture: (2) Depression: (3) Hypertension: (4) Venous stasis: (5) DVT prophylaxis: Plan This is a 54 year old female with past medical history of venous stasis, morbid obesity, hypertension who presented to the hospital on 09/30 for a left ankle fracture. Was able to obtain records from and operative report- patient had left trimalleolar ankle fx w/ unstable syndesmosis. She underwent ORIF left trimalleolar ankle fx w/o fixation of posterior malleolus syndesmotic fixation on 08/29/24 w/ Dr. Reyes. #Left ankle fracture Patient w/ ankle fracture ~ 4 weeks ago had surgery at [facility]. Reports she fell down stairs twice and had extensive surgery. Patient then went to [facility] for rehab and signed out AMA due to not feeling she was being adequately treated. She then returned home and was unable to care for herself so she presented back to . was unable to find a SNF and patient was discharged home. She presented to our facility with the hopes of SNF rehab placement. Left Ankle XR: previous internal fixation of medial malleolar & distal fibular fx Doppler US: negative for DVT. Continue pain management, Ceftin, and PT/OT as tolerated. Vitamin D level low, started supplementation. Was able to discuss w/ foot/ankle specialist Dr. Ocampo 10/05 who recommended starting with 25% weight bearing when able and slowly advance each week until full weight bearing in ~ 4 weeks. Plan for repeat x-ray on 10/09 and hopeful to start partial weight bearing on 10/10. Will plan to update PT w/ these recommendations as well. #Cough Patient w/ dry cough. Reports URI several weeks ago. Tessalon Perles/Mucinex PRN Claritin daily #Constipation Miralax and Colace daily. encourage PO hydration #Depression Continue to offer support and encouragement. Continue management of depression & utilizing skills (writing out thoughts and feelings) Psych liaison if needed Outpatient follow up. Chronic conditions: HTN: Amlodipine, Metoprolol (switched dosing to AM and 1800 per patient request) Venous stasis: Lasix DVT prophylaxis: Lovenox Code: full Patient medically stable for discharge, pending placement. Admission and Anticipated Discharge Date Admission Date: September 30, 2024 Subjective Patient seen and examined this morning. Patient reports some numbness/tingling in her left ankle. Reports it started overnight. Patient also reports she had a "goose egg" bump on the anterior of ankle that was outlined with a marker. Still experiencing dry cough. Physical Exam Constitutional: WD/WN, vitals as above Eyes: PERRL, conjunctivae normal, anicteric sclerae Respiratory: breathing unlabored Cardiovascular: well perfused Musculoskeletal: left ankle w/o erythema or edema. Steri strips in place over incision sites. Can feel sensation appropriately Psychiatric: A+Ox3, euthymic affect Results & Data Results & Data Vital Signs (Past 12 Hours) Vital Signs Temp Pulse Resp BP Pulse Ox O2 Del Method 10/07/24 08:00 Room Air 10/07/24 07:10 36.7 C 77 18 113/69 93 Room Air PG Care Time/CCT Total # of Minutes Spent Total Time Spent with Patient: Total time spent is greater than 50% in coordination of care (as documented) at patient's floor/unit and/or counseling patient: Coding Level of Care Code 73562 SUB INP/OBS CARE 07/28MIN Diagnoses Ankle fracture S82.899A Depression F32.A Hypertension I10 Venous stasis I87.8 DVT prophylaxis Z29.9
--- NOTE | 2024-10-08 10:44 | Electrocardiogram Report ---
Test Reason : Blood Pressure : */* mmHG Vent. Rate : 73 BPM Atrial Rate : 73 BPM P-R Int : 202 ms QRS Dur : 88 ms QT Int : 364 ms P-R-T Axes : 67 16 17 degrees QTcB Int : 401 ms Normal sinus rhythm Cannot rule out Anterior infarct (cited on or before 30-Sep-2024) Abnormal ECG When compared with ECG of 30-Sep-2024 12:56, No significant change was found Confirmed by Frank Fermin ([id number]) on 10/08/2024 10:44:25 AM Referred By: REFERRED SELF Confirmed By: Frank Fermin
--- NOTE | 2024-10-08 15:05 | Hospitalist Progress Note ---
Date of Service October 08, 2024 Assessment & Plan (1) Ankle fracture: (2) Depression: (3) Hypertension: (4) Venous stasis: (5) DVT prophylaxis: Plan This is a 54 year old female with past medical history of venous stasis, morbid obesity, hypertension who presented on 09/30 for placement after recent ankle fracture/hospitalization. Patient had left trimalleolar ankle fx w/ unstable syndesmosis. She underwent ORIF left trimalleolar ankle fx w/o fixation of posterior malleolus syndesmotic fixation on 08/29/24 w/ Dr. Reyes, was discharged to [facility] for rehab and signed out AMA, returned home and was unable to care for herself and went back to [facility], they were unable to find placement for her and she was sent home and then present to [facility] for placement. #Left ankle fracture Left Ankle XR: previous internal fixation of medial malleolar & distal fibular fx. Doppler US: negative for DVT. Continue pain management, Ceftin, and PT/OT as tolerated. Vitamin D level low, started supplementation. Case discussed w/ foot/ankle specialist Dr. Ocampo 10/05 who recommended starting with 25% weight bearing when able and slowly advance each week until full weight bearing in ~ 4 weeks. Plan for repeat x-ray on 10/09 and hopeful to start partial weight bearing on 10/10. Will plan to update PT w/ these recommendations as well. #Cough Patient w/ dry cough. Reports URI several weeks ago. Tessalon Perles/Mucinex PRN Claritin daily #Constipation Miralax and Colace daily. encourage PO hydration #Depression Continue to offer support and encouragement. Continue management of depression & utilizing skills (writing out thoughts and feelings) Psych liaison if needed Outpatient follow up. HTN: Amlodipine, Metoprolol (switched dosing to AM and 1800 per patient request) Venous stasis: Lasix DVT prophylaxis: Lovenox Dispo: Patient medically stable for discharge, pending placement. Admission and Anticipated Discharge Date Admission Date: September 30, 2024 Subjective patient seen sitting up in bed, just initial lunch. Reports sinus congestion that started over the last few days Has a cough but is nonproductive states that most of her mucus is coming from her nose. Reports that she is getting around okay, encouraged out of bed denies pain in her ankle unless being touched Review of Systems Review of Systems: All systems reviewed & are unremarkable except as noted in Subjective Physical Exam Physical Exam: General: NAD, VS as above, obese, sitting up in bed HEENT: + rhinorrhea Resp: normal respiratory effort, lungs clear to auscultation CV: RRR, no murmur, Abd: normal bowel sounds, non tender, no hepatosplenomegaly Extremities: Moves all extremities, left ankle livier wrap removed - no erythema or edema Neuro: A&O x3, Results & Data Results & Data Vital Signs (Past 12 Hours) Vital Signs Temp Pulse Pulse Resp BP BP Pulse Ox 10/08/24 14:39 97.5 F L 61 16 114/72 96 10/08/24 09:13 71 127/64 10/08/24 07:20 10/08/24 07:08 98.6 F 82 16 126/72 92 O2 Del Method 10/08/24 14:39 Room Air 10/08/24 09:13 10/08/24 07:20 Room Air 10/08/24 07:08 Room Air PG Care Time/CCT Total # of Minutes Spent Total Time Spent with Patient: Total time spent is greater than 50% in coordination of care (as documented) at patient's floor/unit and/or counseling patient: Coding Level of Care Code 58384 SUB INP/OBS CARE 07/28MIN Diagnoses Ankle fracture S82.899A Depression F32.A Hypertension I10 Venous stasis I87.8 DVT prophylaxis Z29.9
--- NOTE | 2024-10-09 07:23 | XRay Report ---
EXAM: XR ankle LT 2V CLINICAL HISTORY: Reassess hardware/fx. TECHNIQUE: X-ray images of the left ankle were obtained in anteroposterior (AP) and lateral projections. COMPARISON: Study dated 09/30/2024. FINDINGS: Bone Structure: Internal fixation of comminuted fracture of the distal shaft of fibula and fracture of the medial malleolus with ongoing healing seen as less prominent lucent fracture lines and progressing surrounding sclerosis . Otherwise, bone structure is normal and aligned. No evidence of new fracture or dislocation. Joint Spaces: Joint spaces are normal. No evidence of joint effusion or subluxation. Soft Tissues: Soft tissues appear normal and unremarkable. No soft tissue swelling, calcifications, or foreign bodies noted. Additional Findings: Plantar calceneal spur. No signs of osteoarthritis, lytic or sclerotic lesions. IMPRESSION: 1. Internal fixation of comminuted fracture of the distal shaft of the fibula and fracture of the medial malleolus with ongoing healing. 2. Plantar calceneal spur. Disclaimer: A subtle bone abnormality or fracture may not be readily apparent on X-rays, thus clinical correlation and further imaging including follow-up CT, MRI, or follow-up X-rays are advised as needed. Electronically signed by Mahin Pemberton 10-09-2024 07:22 AM
[2024-10-09 07:48] LABS: Hematocrit (blood only) 39.6 % (37.0-47.0); Mean Corpuscular Hemoglobin 28.3 pg (25.0-34.0); Mean Corpuscular Hgb Conc 32.8 g/dL (32.0-36.0); Mean Corpuscular Volume 86.1 fL (80.0-100.0); Mean Platelet Volume 9.7 fL (9.4-12.4); Platelet Count 264 K/uL (130-400); RDW Standard Deviation 47.3 fL (36.4-46.3); White Blood Count 6.41 K/ul (4.8-10.8)
[2024-10-09 08:50] LABS: Creatinine Clr Calc Pharmacy 134.5 ml/min
--- NOTE | 2024-10-09 11:22 | Orthopedic Consultation ---
Date of Consultation October 09, 2024 Assessment & Plan (1) Ankle fracture: (2) Ambulatory dysfunction: (3) Depression: (4) Hypertension: Plan Yris is a 54-year-old female who is 5 weeks status post ORIF of her left ankle by an outside surgeon. She is admitted to [facility] for ambulatory dysfunction secondary to being unable to care for herself at home after leaving a nursing is medical advice. On physical examination, the patient surgical wounds have healed appropriately. She demonstrates active range of motion without significant pain. Her x-rays demonstrate stable internal fixation. At this point, I believe the patient is still to soon from date of surgery to begin weightbearing. Generally I would have the patient wait at least 6-8 weeks from the date of surgery to determine if progressive weightbearing is appropriate. Given her inability to maintain nonweightbearing at home, I do think that it is reasonable for her to be placed in a nursing or rehab facility. She can follow-up with her index surgeon as scheduled. While she is nonweightbearing, she should continue to receive DVT prophylaxis. She should wear her cam boot while sleeping and at any time while she is moving around, however I do encourage her to come out of it multiple times daily to work on ankle range of motion. If the patient has difficulty returning to see her index surgeon, I would be happy to see her on an outpatient basis. Orders: Nonweightbearing left lower extremity Boot on at all times while out of bed and while sleeping Okay to remove boot to work on ankle range of motion Continue DVT prophylaxis History of Present Illness Reason for Consultation: Left ankle status post ORIF by outside surgeon 09/03/2024, consulted for weightbearing recommendations. Attending Physician: Natalia Cardenas MD History of Present Illness patient is a 54-year-old female who sustained a ankle fracture in early September. She was fixed at [facility] by Dr. Singh on 09/03/2024. Patient was sent to fdc facility after discharge and she was frustrated with the care that she was receiving at that time, she signed out of the nursing facility AGAINST MEDICAL ADVICE and returned home. She had difficulty maintaining her nonweightbearing and did not have much support, so she went to a [facility] facility where she was unable to be placed into a fdc facility and she was sent home. She presented to [facility] for further evaluation. Upon evaluation, she had an ultrasound study done which demonstrated no DVT. She had x-rays done which demonstrated stable internal fixation. Or dysfunction and for nursing facility placement. I was consulted for recommendations as to her weightbearing status. On my evaluation, the patient notes that her ankle overall is doing well. She is practicing range of motion exercises and notes that the swelling is improving. Patient notes that she has a soreness in her ankle but no significant pain at this time. Allergies Allergy/AdvReac Type Severity Reaction Status Date / Time codeine Allergy Severe SHORT OF Verified 09/30/24 16:16 BREATH/ITCHY RASH/"HOT&COLD FEELING" butorphanol [From Stadol] Allergy Intermediate ITCHY/"HOT&COLD Verified 09/30/24 16:16 FEELING" Home Medications Medication Instructions Recorded Confirmed Type acetaminophen 500 mg tablet 1,000 mg PO Q8H PRN Pain 09/30/24 09/30/24 History (Tylenol Extra Strength) amlodipine 10 mg tablet 10 mg PO DAILY 09/30/24 09/30/24 History cefuroxime axetil 500 mg tablet 500 mg PO BID 09/30/24 09/30/24 History enoxaparin 40 mg/0.4 mL 40 mg subcut BID 09/30/24 09/30/24 History subcutaneous syringe furosemide 40 mg tablet 40 mg PO DAILY 09/30/24 09/30/24 History melatonin 3 mg tablet 3 mg PO HS PRN Sleep 09/30/24 09/30/24 History methocarbamol 750 mg tablet 750 mg PO BID PRN MUSCLE SPASMS 09/30/24 09/30/24 History metoprolol tartrate 50 mg tablet 50 mg PO BID 09/30/24 09/30/24 History omeprazole 20 mg tablet,delayed 20 mg PO DAILY PRN ACID STOMACH 09/30/24 09/30/24 History release oxycodone 5 mg tablet 5 mg PO QID PRN Pain 09/30/24 09/30/24 History spironolactone 25 mg tablet 25 mg PO DAILY 09/30/24 09/30/24 History Patient History Social History Smoking Status: Never smoker Hx Alcohol Use: No Hx Substance Use: No Preferred Language: Liberian Communication Ability: Effective Pulverizer Required: No Beliefs That Will Affect Care: None Current Living Situation: Family Feels Safe at Home: Yes Assistive Devices: Walker Review of Systems Review of Systems: All systems reviewed & are unremarkable except as noted in HPI & below Physical Exam Physical Exam: On physical examination, the patient's cam boot was removed and her skin examined. Her wounds have healed nicely without signs, drainage, infection. She demonstrates ankle range of motion to neutral dorsiflexion and 30 degrees plantarflexion. Results & Data Vital Signs (Past 12 Hours) Vital Signs Temp Pulse Resp BP Pulse Ox O2 Del Method 10/09/24 07:28 36.8 C 71 15 127/69 98 Room Air 10/09/24 07:20 Room Air Diagnostic Findings X-rays of the left ankle were personally interpreted and reviewed. These demonstrate stable internal fixation of a comminuted Kang C distal fibula fracture with syndesmotic fixation and medial malleolar fixation.
--- NOTE | 2024-10-09 14:26 | Hospitalist Progress Note ---
Date of Service October 09, 2024 Assessment & Plan (1) Ankle fracture: (2) Depression: (3) Hypertension: (4) Venous stasis: (5) DVT prophylaxis: Plan This is a 54 year old female with past medical history of venous stasis, morbid obesity, hypertension who presented on 09/30 for placement after recent ankle fracture/hospitalization. Patient had left trimalleolar ankle fx w/ unstable syndesmosis. She underwent ORIF left trimalleolar ankle fx w/o fixation of posterior malleolus syndesmotic fixation on 08/29/24 w/ Dr. Reyes, was discharged to [facility] for rehab and signed out AMA, returned home and was unable to care for herself and went back to [facility], they were unable to find placement for her and she was sent home and then present to [facility] for placement. #Left ankle fracture Left Ankle XR: previous internal fixation of medial malleolar & distal fibular fx. Doppler US: negative for DVT. Vitamin D level low, started supplementation. Ortho consulted, Dr. Ocampo - recommend continue NWB for one more week, boot on at all times, but can remove to do ROM Exercises Call f/u with Dr. Ocampo if cannot get into her initial surgeon Continue robaxin prn muscle spasm, oxycodone 5mg qid prn pain, APAP prn pain #Cough/Rhinorrhea Patient w/ dry cough. Reports URI several weeks ago. Tessalon Perles/Mucinex PRN Claritin daily. Add afrin nasal spray #Constipation Miralax and Colace daily. encourage PO hydration #Depression Continue to offer support and encouragement. Continue management of depression & utilizing skills (writing out thoughts and feelings) Psych liaison if needed Outpatient follow up. #Vitamin D deficiency-Vit D very low at 9 -started Vit D 5000 units daily #HTN: BPs controlled -continue Amlodipine, Metoprolol (switched dosing to AM and 1800 per patient request) spironolactone, and lasix #Venous stasis: continue Lasix, spironolactone DVT prophylaxis: Lovenox Dispo: continued inpatient stay Discussed case with Dr. Ocampo Admission and Anticipated Discharge Date Admission Date: September 30, 2024 Supervising Physician Co-Signing Physician Notes PA Supervision Note: I did not personally see or examine the patient today, but I verified all macias points of RUFINO Montes De Oca's assessment and plan with the following exceptions/additions: None Subjective patient seen sitting up in bed after lunch doing okay from a pain standpoint - aware of the recommendations for no weight bearing for another weak frustrated with her sinus congestioned, lots of runny nose reports being away from home is making her depressed. has plenty of things at bedside to keep her busy, offered psych liason. coming to visit [facility] encouraged to do her exercises Review of Systems Review of Systems: All systems reviewed & are unremarkable except as noted in Subjective Physical Exam Physical Exam: General: NAD, VS as above, obese, sitting up in bed HEENT: + rhinorrhea Resp: normal respiratory effort, lungs clear to auscultation CV: RRR, no murmur, Abd: normal bowel sounds, non tender, no hepatosplenomegaly Extremities: Moves all extremities, Neuro: A&O x3, Results & Data Results & Data Vital Signs (Past 12 Hours) Vital Signs Temp Pulse Resp BP Pulse Ox O2 Del Method 10/09/24 07:28 98.2 F 71 15 127/69 98 Room Air 10/09/24 07:20 Room Air Laboratory Results cbc and cr reviewed PG Care Time/CCT Total # of Minutes Spent Total Time Spent with Patient: Total time spent is greater than 50% in coordination of care (as documented) at patient's floor/unit and/or counseling patient: Coding Level of Care Code 77715 SUB INP/OBS CARE 2/35MIN Diagnoses Ankle fracture S82.899A Depression F32.A Hypertension I10 Venous stasis I87.8 DVT prophylaxis Z29.9
[2024-10-09] MEDS: OXYMETAZOLINE 0.05% 30 ML BTL PRN (16:24)
--- NOTE | 2024-10-10 10:01 | Hospitalist Progress Note ---
Date of Service October 10, 2024 Assessment & Plan (1) Ankle fracture: (2) Depression: (3) Hypertension: (4) Venous stasis: (5) DVT prophylaxis: Plan This is a 54 year old female with past medical history of venous stasis, morbid obesity, hypertension who presented on 09/30 for placement after recent ankle fracture/hospitalization. Patient had left trimalleolar ankle fx w/ unstable syndesmosis. She underwent ORIF left trimalleolar ankle fx w/o fixation of posterior malleolus syndesmotic fixation on 08/29/24 w/ Dr. Reyes, was discharged to [facility] for rehab and signed out AMA, returned home and was unable to care for herself and went back to [facility], they were unable to find placement for her and she was sent home and then present to [facility] for placement. #Left ankle fracture/ Vit D deficiency Left Ankle XR: previous internal fixation of medial malleolar & distal fibular fx. Doppler US: negative for DVT. Vitamin D level low, started supplementation. Ortho consulted, Dr. Ocampo - recommend continue NWB for one more week, boot on at all times, but can remove to do ROM Exercises Call f/u with Dr. Ocampo if cannot get into her initial surgeon Pain control: prn robaxin, tylenol and oxycodone 5mg #Cough/Rhinorrhea Patient w/ dry cough. Reports URI several weeks ago. Tessalon Perles/Mucinex PRN/ afrin Claritin daily. #Constipation Miralax and Colace daily. encourage PO hydration #Depression Continue to offer support and encouragement. Continue management of depression & utilizing skills (writing out thoughts and feelings) Psych liaison if needed Outpatient follow up. #HTN/venous stasis: -continue Amlodipine, Metoprolol (switched dosing to AM and 1800 per patient request) spironolactone, and lasix DVT prophylaxis: Lovenox BID Dispo: continued inpatient stay Admission and Anticipated Discharge Date Admission Date: September 30, 2024 Supervising Physician Co-Signing Physician Notes PA Supervision Note: I did not personally see or examine the patient today, but I verified all macias points of RUFINO Montes De Oca's assessment and plan with the following exceptions/additions: consider adding Wellbutrin for depression/weight loss Subjective Patient seen sitting up in the wheelchair. Reports that she has been doing her exercises with her foot, getting sore. Still having congestion but feels like this is improving. Reports that she did not sleep well last night, asking for a stronger sleep aide. When asks what she used at home from sleep she responds "my " Review of Systems Review of Systems: All systems reviewed & are unremarkable except as noted in Subjective Physical Exam Physical Exam: General: NAD, VS as above, obese, sitting up in bed HEENT: + rhinorrhea, improved from prior Resp: normal respiratory effort, lungs clear to auscultation CV: RRR, no murmur, Extremities: Moves all extremities, ortho boot in place left foot Neuro: A&O x3, Results & Data Results & Data Vital Signs (Past 12 Hours) Vital Signs Temp Pulse Resp BP Pulse Ox O2 Del Method 10/10/24 09:28 Room Air 10/10/24 07:15 97.9 F 61 16 127/70 93 Room Air PG Care Time/CCT Total # of Minutes Spent Total Time Spent with Patient: Total time spent is greater than 50% in coordination of care (as documented) at patient's floor/unit and/or counseling patient: Coding Level of Care Code 08476 SUB INP/OBS CARE 07/28MIN Diagnoses Ankle fracture S82.899A Depression F32.A Hypertension I10 Venous stasis I87.8 DVT prophylaxis Z29.9
--- NOTE | 2024-10-11 12:00 | Hospitalist Progress Note ---
Date of Service October 11, 2024 Assessment & Plan (1) Ankle fracture: (2) Depression: (3) Hypertension: (4) Venous stasis: (5) DVT prophylaxis: Plan This is a 54 year old female with past medical history of venous stasis, morbid obesity, hypertension who presented on 09/30 for placement after recent ankle fracture/hospitalization. Patient had left trimalleolar ankle fx w/ unstable syndesmosis. She underwent ORIF left trimalleolar ankle fx w/o fixation of posterior malleolus syndesmotic fixation on 08/29/24 w/ Dr. Reyes, was discharged to [facility] for rehab and signed out AMA, returned home and was unable to care for herself and went back to [facility], they were unable to find placement for her and she was sent home and then present to [facility] for placement. #Left ankle fracture/ Vit D deficiency Left Ankle XR: previous internal fixation of medial malleolar & distal fibular fx. Doppler US: negative for DVT. Vitamin D level low, started supplementation. Ortho consulted, Dr. Ocampo - recommend continue NWB for one more week, boot on at all times, but can remove to do ROM Exercises Call f/u with Dr. Ocampo if cannot get into her initial surgeon Pain control: prn robaxin, tylenol and oxycodone 5mg PT/OT - rec rehab, currently no accepting facility #Cough/Rhinorrhea Patient w/ dry cough. Reports URI several weeks ago. Tessalon Perles/Mucinex PRN/ afrin Claritin daily. #Constipation Miralax and Colace daily. encourage PO hydration #Depression Continue to offer support and encouragement. Patient has been to therapy in the past and has coping mechanisms. Psych liaison if needed Offered medications, pt does not feel like she needs them at this time. #HTN/venous stasis: -continue Amlodipine, Metoprolol (switched dosing to AM and 1800 per patient request) spironolactone, and lasix DVT prophylaxis: Lovenox BID Dispo: continued inpatient stay Admission and Anticipated Discharge Date Admission Date: September 30, 2024 Supervising Physician Co-Signing Physician Notes PA Supervision Note: I did not personally see or examine the patient today, but I verified all macias points of RUFINO Montes De Oca's assessment and plan with the following except ions/additions: none Subjective Patient seen lying in bed. reports that her depression is okay - comes in waves, associates it mainly in the hospital and not being able to take care of her family and her dog Feels that is stable though and does not need medication. relays to me about her traumatic past and feels that she has appropriate coping mechanisms congestion is improving reports ankle soreness after doing her exercises Discussed with her the possibility of going home - on discharge she is planning to move to her sister in laws place that is 1 story and wheel chair accessible Review of Systems Review of Systems: All systems reviewed & are unremarkable except as noted in Subjective Physical Exam Physical Exam: General: NAD, VS as above, obese, sitting up in bed HEENT: + rhinorrhea, improved from prior Resp: normal respiratory effort, no cough during my encounter CV: RRR, no murmur, Extremities: Moves all extremities, ortho boot in place left foot Neuro: A&O x3, Results & Data Results & Data Vital Signs (Past 12 Hours) Vital Signs Temp Pulse Resp BP Pulse Ox O2 Del Method 10/11/24 07:23 97.7 F 77 17 166/62 H 92 Room Air PG Care Time/CCT Total # of Minutes Spent Total Time Spent with Patient: Total time spent is greater than 50% in coordination of care (as documented) at patient's floor/unit and/or counseling patient: Coding Level of Care Code 97593 SUB INP/OBS CARE 07/28MIN Diagnoses Ankle fracture S82.899A Depression F32.A Hypertension I10 Venous stasis I87.8 DVT prophylaxis Z29.9
[2024-10-12 06:46] LABS: Hematocrit (blood only) 36.5 % (37.0-47.0); Hemoglobin 12.1 g/dl (12.0-16.0); Mean Corpuscular Hemoglobin 28.3 pg (25.0-34.0); Mean Corpuscular Hgb Conc 33.2 g/dL (32.0-36.0); Mean Corpuscular Volume 85.5 fL (80.0-100.0); Mean Platelet Volume 9.5 fL (9.4-12.4); Platelet Count 293 K/uL (130-400); RDW Coefficient of Variation 14.8 % (11.5-14.5); RDW Standard Deviation 45.6 fL (36.4-46.3); Red Blood Count 4.27 M/uL (4.20-5.40); White Blood Count 7.39 K/ul (4.8-10.8)
[2024-10-12 06:59] LABS: Creatinine Clr Calc Pharmacy 134.5 ml/min
--- NOTE | 2024-10-12 11:31 | Hospitalist Progress Note ---
Date of Service October 12, 2024 Assessment & Plan (1) Ankle fracture: (2) Depression: (3) Hypertension: (4) Venous stasis: (5) DVT prophylaxis: (6) Morbid obesity with BMI of 50.0-59.9, adult: Plan This is a 54 year old female with past medical history of venous stasis, morbid obesity, hypertension who presented on 09/30 for placement after recent ankle fracture/hospitalization. Patient had left trimalleolar ankle fx w/ unstable syndesmosis. She underwent ORIF left trimalleolar ankle fx w/o fixation of posterior malleolus syndesmotic fixation on 08/29/24 w/ Dr. Reyes, was discharged to [facility] for rehab and signed out AMA, returned home and was unable to care for herself and went back to [facility], they were unable to find placement for her and she was sent home and then present to [facility] for placement. #Left ankle fracture/ Vit D deficiency Left Ankle XR: previous internal fixation of medial malleolar & distal fibular fx. Doppler US: negative for DVT. Vitamin D level low, started supplementation. Ortho consulted, Dr. Ocampo - recommend on 10/09 continue NWB for one more week, boot on at all times, but can remove to do ROM Exercises Call f/u with Dr. Ocampo if cannot get into her initial surgeon Pain control: prn robaxin, tylenol and oxycodone 5mg PT/OT - rec rehab, currently no accepting facility #Cough/Rhinorrhea - this is improving Patient w/ dry cough. Reports URI several weeks ago. Tessalon Perles/Mucinex PRN/ afrin Claritin daily. #Constipation Miralax and Colace daily. Bowels finally moving now with loose stools. Will change miralax to prn #Depression Continue to offer support and encouragement. Patient has been to therapy in the past and has coping mechanisms. Encourage lights on, out of room, etc Psych liaison consulted Offered medications - discussed zoloft, lexapro, and wellbutrin. She would like to talk to her family first before starting. #HTN/venous stasis: -continue Amlodipine, Metoprolol (switched dosing to AM and 1800 per patient request) spironolactone, and lasix DVT prophylaxis: Lovenox BID Dispo: continued inpatient stay Discussed with TISH garcia Admission and Anticipated Discharge Date Admission Date: September 30, 2024 Supervising Physician Co-Signing Physician Notes Attending Attestation: Chart reviewed, care plan d/w RUFINO Montes De Oca. I agree w/ the macias components of her documentation with the following addition - * morbid obesity, BMI 58 Awaiting placement. Richard Corrales MD Subjective Patient seen sititng up in bed - feels like her depression is worse given that her complex medical problems and being away from her family. Discussed starting medication and she would like to talk to her family about this. reports she has been doing her exercsies Review of Systems Review of Systems: All systems reviewed & are unremarkable except as noted in Subjective Physical Exam Physical Exam: General: NAD, VS as above, obese, sitting up in bed Resp: normal respiratory effort, no cough during my encounter CV: RRR, no murmur, Extremities: Moves all extremities, ortho boot in place left foot Neuro: A&O x3, Results & Data Results & Data Vital Signs (Past 12 Hours) Vital Signs Temp Pulse Resp BP Pulse Ox O2 Del Method 10/12/24 07:08 97.7 F 79 20 178/99 H 95 Room Air Laboratory Results cbc and chemistry reviewed PG Care Time/CCT Total # of Minutes Spent Total Time Spent with Patient: Total time spent is greater than 50% in coordination of care (as documented) at patient's floor/unit and/or counseling patient: Coding Level of Care Code 47029 SUB INP/OBS CARE 2/35MIN Diagnoses Ankle fracture S82.899A Depression F32.A Hypertension I10 Venous stasis I87.8 DVT prophylaxis Z29.9 Morbid obesity with BMI of 50.0-59.9, adult E66.01; Z68.43
--- NOTE | 2024-10-13 11:17 | Hospitalist Progress Note ---
Date of Service October 13, 2024 Assessment & Plan (1) Ankle fracture: (2) Depression: (3) Hypertension: (4) Venous stasis: (5) DVT prophylaxis: Plan This is a 54 year old female with past medical history of venous stasis, morbid obesity, hypertension who presented on 09/30 for placement after recent ankle fracture/hospitalization. Patient had left trimalleolar ankle fx w/ unstable syndesmosis. She underwent ORIF left trimalleolar ankle fx w/o fixation of posterior malleolus syndesmotic fixation on 08/29/24 w/ Dr. Reyes, was discharged to [facility] for rehab and signed out AMA, returned home and was unable to care for herself and went back to [facility], they were unable to find placement for her and she was sent home and then present to [facility] for placement. #Left ankle fracture/ Vit D deficiency Left Ankle XR: previous internal fixation of medial malleolar & distal fibular fx. Doppler US: negative for DVT. Vitamin D level low, started supplementation. Ortho consulted, Dr. Ocampo - recommend on 10/09 continue NWB for one more week, boot on at all times, but can remove to do ROM Exercises Call f/u with Dr. Ocampo if cannot get into her initial surgeon Pain control: prn robaxin, tylenol and oxycodone 5mg PT/OT - rec rehab, currently no accepting facility #Cough/Rhinorrhea - this is improving Patient w/ dry cough. Reports URI several weeks ago. Tessalon Perles/Mucinex PRN/ afrin Claritin daily. #Constipation Miralax and Colace daily. Bowels finally moving now with loose stools. Will change miralax to prn #Depression Continue to offer support and encouragement. Patient has been to therapy in the past and has coping mechanisms. Encourage lights on, out of room, etc Psych liaison consulted Offered medications - discussed zoloft, lexapro, and wellbutrin. She would like to talk to her family first before starting. Now wanting recs from psych - psych liason messaged #HTN/venous stasis: -continue Amlodipine, Metoprolol (switched dosing to 0700 and 1800 per patient request) spironolactone, and lasix DVT prophylaxis: Lovenox BID Dispo: continued inpatient stay Discussed with TISH garcia Admission and Anticipated Discharge Date Admission Date: September 30, 2024 Supervising Physician Co-Signing Physician Notes Attending Attestation: Chart reviewed, care plan d/w RUFINO Montes De Oca. I agree w/ the macias components of her documentation. Awaiting placement. Richard Corrales MD Subjective Patient seen sitting up in the bed was able to shower this morning - now having ankle pain Concerned about the time of her metoprolol discussing her depression meds states that the psychiatrist is supposed to see her today Review of Systems Review of Systems: All systems reviewed & are unremarkable except as noted in Subjective Physical Exam Physical Exam: General: NAD, VS as above, obese, sitting up in bed Resp: normal respiratory effort, no cough during my encounter CV: RRR, no murmur, Extremities: Moves all extremities, ortho boot removed, able to wiggle toes and perform ankle ROM Neuro: A&O x3, Results & Data Results & Data Vital Signs (Past 12 Hours) Vital Signs Temp Pulse Resp BP Pulse Ox O2 Del Method 10/13/24 07:28 98.2 F 70 20 111/68 93 Room Air PG Care Time/CCT Total # of Minutes Spent Total Time Spent with Patient: Total time spent is greater than 50% in coordination of care (as documented) at patient's floor/unit and/or counseling patient: Coding Level of Care Code 88940 SUB INP/OBS CARE 2/35MIN Diagnoses Ankle fracture S82.899A Depression F32.A Hypertension I10 Venous stasis I87.8 DVT prophylaxis Z29.9
[2024-10-13] MEDS: METOPROLOL TARTRATE 50 MG TAB PO SCH (17:21)
[2024-10-13] MEDS: MELATONIN 3 MG TAB PO PRN (21:37)
--- NOTE | 2024-10-14 10:42 | Hospitalist Progress Note ---
Date of Service October 14, 2024 Assessment & Plan (1) Ankle fracture: (2) Depression: (3) Hypertension: (4) Venous stasis: (5) DVT prophylaxis: Plan This is a 54 year old female with past medical history of venous stasis, morbid obesity, hypertension who presented on 09/30 for placement after recent ankle fracture/hospitalization. Patient had left trimalleolar ankle fx w/ unstable syndesmosis. She underwent ORIF left trimalleolar ankle fx w/o fixation of posterior malleolus syndesmotic fixation on 08/29/24 w/ Dr. Reyes, was discharged to [facility] for rehab and signed out AMA, returned home and was unable to care for herself and went back to [facility], they were unable to find placement for her and she was sent home and then present to [facility] for placement. Remains NWB at this time, difficulty finding placement. #Left ankle fracture/ Vit D deficiency Left Ankle XR: previous internal fixation of medial malleolar & distal fibular fx. Doppler US: negative for DVT. Vitamin D level low, started supplementation. Ortho consulted, Dr. Ocampo - recommend on 10/09 continue NWB for one more week, boot on at all times, but can remove to do ROM Exercises Call f/u with Dr. Ocampo if cannot get into her initial surgeon Pain control: prn robaxin, tylenol and oxycodone 5mg PT/OT - rec rehab, currently no accepting facility #Cough/Rhinorrhea - this is improving Patient w/ dry cough. Reports URI several weeks ago. Tessalon Perles/Mucinex PRN/ afrin Claritin daily. #Constipation Miralax and Colace daily. Bowels finally moving now with loose stools. Will change miralax to prn #Depression Continue to offer support and encouragement. Patient has been to therapy in the past and has coping mechanisms. Encourage lights on, out of room, etc Psych liaison consulted Discussed with pt and psych - recommend Zoloft 50mg, ordered to start PM 4 #HTN/venous stasis: -continue Amlodipine, Metoprolol (switched dosing to 0700 and 1800 per patient request) spironolactone, and lasix DVT prophylaxis: Lovenox BID Dispo: continued inpatient stay Admission and Anticipated Discharge Date Admission Date: September 30, 2024 Supervising Physician Co-Signing Physician Notes Attending Attestation: Chart reviewed, care plan d/w RUFINO Montes De Oca. I agree w/ the macias components of her documentation. Awaiting placement which has proven challenging to date. Richard Corrales MD Subjective Patient seen sitting up in bed., Reports ankle pain after doing her ankle exercises Nausea this morning - declining medication Agreeable to take medication recommended by psych - would prefer to let it try to tonight Review of Systems Review of Systems: All systems reviewed & are unremarkable except as noted in Subjective Physical Exam Physical Exam: General: NAD, VS as above, obese, sitting up in bed Resp: normal respiratory effort, no cough during my encounter CV: RRR, no murmur, Extremities: Moves all extremities, Neuro: A&O x3, Results & Data Results & Data Vital Signs (Past 12 Hours) Vital Signs Temp Pulse Resp BP Pulse Ox O2 Del Method 10/14/24 07:13 98.1 F 64 18 124/70 96 Room Air PG Care Time/CCT Total # of Minutes Spent Total Time Spent with Patient: Total time spent is greater than 50% in coordination of care (as documented) at patient's floor/unit and/or counseling patient: Coding Level of Care Code 26942 SUB INP/OBS CARE 2/35MIN Diagnoses Ankle fracture S82.899A Depression F32.A Hypertension I10 Venous stasis I87.8 DVT prophylaxis Z29.9
[2024-10-14] MEDS: ONDANSETRON 4 MG OD TAB PO PRN (11:28)
[2024-10-14] MEDS: SERTRALINE HCL 50 MG TABLET PO SCH (22:02)
--- NOTE | 2024-10-15 14:10 | Hospitalist Progress Note ---
Date of Service October 15, 2024 Assessment & Plan (1) Ankle fracture: (2) Depression: (3) Hypertension: (4) Venous stasis: (5) DVT prophylaxis: Plan This is a 54 year old female with past medical history of venous stasis, morbid obesity, hypertension who presented on 09/30 for placement after recent ankle fracture/hospitalization. Patient had left trimalleolar ankle fx w/ unstable syndesmosis. She underwent ORIF left trimalleolar ankle fx w/o fixation of posterior malleolus syndesmotic fixation on 08/29/24 w/ Dr. Reyes, was discharged to [facility] for rehab and signed out AMA, returned home and was unable to care for herself and went back to [facility], they were unable to find placement for her and she was sent home and then present to [facility] for placement. Remains NWB at this time, difficulty finding placement. #Left ankle fracture/ Vit D deficiency Left Ankle XR: previous internal fixation of medial malleolar & distal fibular fx. Doppler US: negative for DVT. Vitamin D level low, started supplementation. Ortho consulted, Dr. Ocampo - recommend on 10/09 continue NWB for one more week, boot on at all times, but can remove to do ROM Exercises Reached out to Dr. Ocampo 10/15 about repeating an XR, awaiting to hear back. Call f/u with Dr. Ocampo if cannot get into her initial surgeon Pain control: prn Robaxin, Tylenol and oxycodone 5mg PT/OT - rec rehab, currently no accepting facility #Cough/Rhinorrhea - this is improving Patient w/ dry cough. Reports URI several weeks ago. Tessalon Perles/Mucinex PRN/ afrin Claritin daily. #Constipation Colace daily. Bowels finally moving now with loose stools. Will change miralax to prn #Depression Continue to offer support and encouragement. Patient has been to therapy in the past and has coping mechanisms. Encourage lights on, out of room, etc Psych liaison consulted Discussed with pt and psych - Zoloft 50mg started 10/14, await therapeutic response. #HTN/venous stasis: -continue Amlodipine, Metoprolol (switched dosing to 0700 and 1800 per patient request) spironolactone, and lasix DVT prophylaxis: Lovenox BID Dispo: continued inpatient stay Admission and Anticipated Discharge Date Admission Date: September 30, 2024 Supervising Physician Co-Signing Physician Notes Attending Attestation: Chart reviewed, care plan d/w RUFINO Sepulveda. I agree w/ the macias components of her documentation. Awaiting placement which has proven challenging to date. Would check a BMP next few days given her double diuretic usage. Richard Corrales MD Subjective Patient seen and examined this morning. patient reports she she has been doing range of motion exercises in bed with her ankle. She reports that she would like to go to [facility] if possible after she can partially bear weight. Discussed her cough - she reports the medication helps with it. Discussed her mental health - she reports she was given a pamphlet of local services and will follow up with one upon discharge. Physical Exam Constitutional: WD/WN, vitals as above Eyes: PERRL, conjunctivae normal, anicteric sclerae Respiratory: breathing unlabored Cardiovascular: well perfused Psychiatric: A+Ox3, euthymic affect Results & Data Results & Data Vital Signs (Past 12 Hours) Vital Signs Temp Pulse Resp BP Pulse Ox O2 Del Method 10/15/24 08:56 Room Air 10/15/24 07:20 36.7 C 58 L 16 131/80 92 Room Air PG Care Time/CCT Total # of Minutes Spent Total Time Spent with Patient: Total time spent is greater than 50% in coordination of care (as documented) at patient's floor/unit and/or counseling patient: Coding Level of Care Code 36911 SUB INP/OBS CARE 2/35MIN Diagnoses Ankle fracture S82.899A Depression F32.A Hypertension I10 Venous stasis I87.8 DVT prophylaxis Z29.9
[2024-10-15] MEDS: oxyCODONE HCL IR 5 MG TAB (IMMEDIATE RELEASE) PO PRN (15:52)
[2024-10-16 07:41] VITALS: RESP 16
--- NOTE | 2024-10-16 10:29 | XRay Report ---
XR ankle LT min 3V routine CLINICAL HISTORY: left ORIF COMPARISON: 10/09/2024 FINDINGS: There is stable hardware at the distal tibia and fibula with no displacement at the healin g fractures. IMPRESSION: Stable alignment. ACT 112: Negative or not required by law. Electronically signed by: Cali Clakr M.D. 10/16/2024 10:28 AM
--- NOTE | 2024-10-16 14:33 | Hospitalist Progress Note ---
Date of Service October 16, 2024 Assessment & Plan (1) Ankle fracture: (2) Depression: (3) Hypertension: (4) Venous stasis: (5) DVT prophylaxis: Plan This is a 54 year old female with past medical history of venous stasis, morbid obesity, hypertension who presented on 09/30 for placement after recent ankle fracture/hospitalization. Patient had left trimalleolar ankle fx w/ unstable syndesmosis. She underwent ORIF left trimalleolar ankle fx w/o fixation of posterior malleolus syndesmotic fixation on 08/29/24 w/ Dr. Reyes, was discharged to [facility] for rehab and signed out AMA, returned home and was unable to care for herself and went back to [facility], they were unable to find placement for her and she was sent home and then present to [facility] for placement. Remains NWB at this time, difficulty finding placement. #Left ankle fracture/ Vit D deficiency Left Ankle XR: previous internal fixation of medial malleolar & distal fibular fx. Doppler US: negative for DVT. Vitamin D level low, started supplementation. Repeat XR 10/16 - stable alignment. Discussed w/ Dr. Ocampo - recommend partial weight bearing to begin and advance slowly as tolerated. - updated PT. Call f/u with Dr. Ocampo if cannot get into her initial surgeon Pain control: prn Robaxin, Tylenol and oxycodone 5mg PT/OT - rec rehab, currently no accepting facility #Cough/Rhinorrhea - this is improving Patient w/ dry cough. Reports URI several weeks ago. Tessalon Perles/Mucinex PRN/ afrin Claritin daily. #Nausea Zofran prn Added Pantoprazole daily 10/16 Encourage smaller portions, slow intake of food to avoid GI upset. #Constipation Colace daily. Bowels finally moving now with loose stools. Will change miralax to prn #Depression Continue to offer support and encouragement. Patient has been to therapy in the past and has coping mechanisms. Encourage lights on, out of room, etc Psych liaison consulted Discussed with pt and psych - Zoloft 50mg started 10/14, await therapeutic response. #HTN/venous stasis: -continue Amlodipine, Metoprolol (switched dosing to 0700 and 1800 per patient request) spironolactone, and lasix DVT prophylaxis: Lovenox BID Dispo: continued inpatient stay Patient medically stable for discharge, awaiting placement. Admission and Anticipated Discharge Date Admission Date: September 30, 2024 Supervising Physician Co-Signing Physician Notes Attending Attestation: Chart reviewed, care plan d/w RUFINO Sepulveda. I agree w/ the macias components of her documentation. Awaiting placement which has proven challenging to date. GI complaints/symptoms - suggest KUB x-ray, r/o severe constipation as cause of nausea/etc. Richard Corrales MD Subjective Patient seen and examined this morning. Patient reports she has had nausea, vomiting, and diarrhea this AM. - discussed w/ nursing who confirms patient is typically nauseous after breakfast as she eats rather fast. Also reports patient had hard stool this morning and 30 cc of emesis. Discussed weight bearing status w/ patient as well. Physical Exam Constitutional: WD/WN, vitals as above Eyes: PERRL, conjunctivae normal, anicteric sclerae Respiratory: breathing unlabored Cardiovascular: well perfused Psychiatric: A+Ox3, euthymic affect Results & Data Results & Data Vital Signs (Past 12 Hours) Vital Signs Temp Pulse Resp BP BP Pulse Ox O2 Del Method 10/16/24 08:57 Room Air 10/16/24 07:38 36.5 C 58 L 16 143/68 H 94 Room Air 10/16/24 06:24 102/60 PG Care Time/CCT Total # of Minutes Spent Total Time Spent with Patient: Total time spent is greater than 50% in coordination of care (as documented) at patient's floor/unit and/or counseling patient: Coding Level of Care Code 32222 SUB INP/OBS CARE 2/35MIN Diagnoses Ankle fracture S82.899A Depression F32.A Hypertension I10 Venous stasis I87.8 DVT prophylaxis Z29.9
[2024-10-16] MEDS: PANTOprazole 40 MG TAB PO STA (14:59)
[2024-10-17] MEDS: PANTOprazole 40 MG TAB PO SCH (08:10)
--- NOTE | 2024-10-17 09:30 | XRay Report ---
KUB HISTORY: assess for constipation COMPARISON STUDY: None FINDINGS: The distal transverse colon, descending colon, and proximal sigmoid colon are moderately di stended with stool. The rectum, transverse colon and right colon are not distended. The properitoneal fat lines are maintained. Cholecystectomy clips are noted. There is no aggressive bone lesions ident ified. There are degenerative changes in the right hip and SI joint. IMPRESSION: Prominent stool burden confined to the distal transverse colon and left colon ACT 112: Negative or not required by law. The above report was generated using voice recognition software. It may contain grammatical, syntax o r spelling errors. Electronically signed by: Lolly Almonte M.D. 10/17/2024 9:29 AM
[2024-10-17] MEDS: POLYETHYLENE (MIRALAX) 17 GM PACK PO SCH (13:40)
--- NOTE | 2024-10-17 16:32 | Hospitalist Progress Note ---
Date of Service October 17, 2024 Assessment & Plan (1) Ankle fracture: (2) Depression: (3) Hypertension: (4) Venous stasis: (5) DVT prophylaxis: Plan This is a 54 year old female with past medical history of venous stasis, morbid obesity, hypertension who presented on 09/30 for placement after recent ankle fracture/hospitalization. Patient had left trimalleolar ankle fx w/ unstable syndesmosis. She underwent ORIF left trimalleolar ankle fx w/o fixation of posterior malleolus syndesmotic fixation on 08/29/24 w/ Dr. Reyes, was discharged to [facility] for rehab and signed out AMA, returned home and was unable to care for herself and went back to [facility], they were unable to find placement for her and she was sent home and then present to [facility] for placement. Remains NWB at this time, difficulty finding placement. #Left ankle fracture/ Vit D deficiency Left Ankle XR: previous internal fixation of medial malleolar & distal fibular fx. Doppler US: negative for DVT. Vitamin D level low, started supplementation. Repeat XR 10/16 - stable alignment. Discussed w/ Dr. Ocampo - recommend partial weight bearing to begin and advance slowly as tolerated. - updated PT. Call f/u with Dr. Ocampo if cannot get into her initial surgeon Pain control: prn Robaxin, Tylenol, oxycodone 5mg PT/OT - rec home w/ home health. patient to go home tomorrow, 10/18. #Cough/Rhinorrhea - improving Patient w/ dry cough. Reports URI several weeks ago. Tessalon Perles/Mucinex PRN/ afrin Claritin daily. #Nausea Zofran prn Added Pantoprazole daily 10/16 Encourage smaller portions, slow intake of food to avoid GI upset. #Constipation KUB 10/17 w/ findings consistent of constipation Discussed w/ patient while she is on narcotics & unable to ambulate much she should take Miralax daily. #Depression Continue to offer support and encouragement. Patient has been to therapy in the past and has coping mechanisms. Encourage lights on, out of room, etc Psych liaison consulted Discussed with pt and psych - Zoloft 50mg started 10/14, await therapeutic response. #HTN/venous stasis: -continue Amlodipine, Metoprolol (switched dosing to 0700 and 1800 per patient request) spironolactone, and lasix DVT prophylaxis: Lovenox BID Anticipate discharge home 10/18 w/ home health Admission and Anticipated Discharge Date Admission Date: September 30, 2024 Subjective Patient seen and examined this morning. Patient reports to be feeling okay today. She reports her left ankle is sore from bearing some weight but she is tolerating it well. Physical Exam Constitutional: WD/WN, vitals as above Eyes: PERRL, conjunctivae normal, anicteric sclerae Respiratory: breathing unlabored Cardiovascular: well perfused Psychiatric: A+Ox3, euthymic affect Results & Data Results & Data Vital Signs (Past 12 Hours) Vital Signs Temp Pulse Resp BP Pulse Ox O2 Del Method 10/17/24 14:12 36.8 C 63 16 135/70 94 Room Air 10/17/24 07:30 Room Air 10/17/24 07:25 36.6 C 54 L 16 135/72 94 Room Air 10/17/24 06:31 68 117/74 PG Care Time/CCT Total # of Minutes Spent Total Time Spent with Patient: Total time spent is greater than 50% in coordination of care (as documented) at patient's floor/unit and/or counseling patient: Coding Level of Care Code 85584 SUB INP/OBS CARE 07/28MIN Diagnoses Ankle fracture S82.899A Depression F32.A Hypertension I10 Venous stasis I87.8 DVT prophylaxis Z29.9
[2024-10-18 10:09] VITALS: BP 128/72; PULSE 60; TEMP 97.9; O2SAT 96
--- NOTE | 2024-10-18 10:52 | Discharge Summary ---
Discharge Summary Date of Service October 18, 2024 Principal Dx & Hospital Course #1 = Principal Diagnosis (1) Ankle fracture: (2) Depression: (3) Hypertension: (4) Venous stasis: (5) DVT prophylaxis: Plan This is a 54 year old female with past medical history of venous stasis, morbid obesity, hypertension who presented on 09/30 for placement after recent ankle fracture/hospitalization. Patient had left trimalleolar ankle fx w/ unstable syndesmosis. She underwent ORIF left trimalleolar ankle fx w/o fixation of posterior malleolus syndesmotic fixation on 08/29/24 w/ Dr. Reyes, was discharged to [facility] for rehab and signed out AMA, returned home and was unable to care for herself and went back to [facility], they were unable to find placement for her and she was sent home and then present to [facility] for placement. Remains NWB at this time, difficulty finding placement. #Left ankle fracture/ Vit D deficiency Left Ankle XR: previous internal fixation of medial malleolar & distal fibular fx. Doppler US: negative for DVT. Vitamin D level low, started supplementation. Repeat XR 10/16 - stable alignment. Discussed w/ Dr. Ocampo - recommend partial weight bearing to begin and advance slowly as tolerated Call f/u with Dr. Ocampo if cannot get into her initial surgeon Pain control: prn Robaxin, Tylenol, oxycodone 5mg on dc PT/OT - rec home w/ home health. #Cough/Rhinorrhea Patient w/ dry cough. Reports URI several weeks ago. resolved prior to dc. Consider daily allergy medication upon discharge. #Nausea Zofran prn Pantoprazole previously prn prior to hospitalization - continue on discharge. Consider daily dosing if persists. Encourage smaller portions, slow intake of food to avoid GI upset. #Constipation KUB 10/17 w/ findings consistent of constipation Discussed w/ patient while she is on narcotics & unable to ambulate much she should take Miralax daily. #Depression Continue to offer support and encouragement. Patient has been to therapy in the past and has coping mechanisms. Encourage lights on, out of room, etc Zoloft 50mg started 10/14, continue on discharge. #HTN/venous stasis: -continue Amlodipine, Metoprolol, spironolactone, and lasix DVT prophylaxis: Lovenox BID, discussed w/ Dr. Ocampo patient should stay on DVT prophylaxis until she is fully weight bearing. Discharged home 10/18 w/ home health Admission HPI Per Admitting Provider patient is a very pleasant 54-year-old female. She broke her ankle and had surgery at [facility]. She was told she needed to be nonweightbearing for 10 weeks and was sent to SNF. At the SNF she was at, she was getting very frustrated she felt like she was not being well cared for, felt like she was spending as much time trying to help take care of her roommate as she was trying to get better, and felt like with nonweightbearing the therapy was not doing much for her. With that, she left SNF AMA, but then quickly at home she/her family realized that this was not going to go well. With nonweightbearing and lack of support, she was concerned about failing, concerned about hurting herself more, and [facility], and sent her home. She came here to the hospital for further evaluation. She has some pain in her left ankle, not necessarily that much new or different than before but is a little bit hard to tell if maybe it slightly worse after moving, and she has slightly worse bilateral lower extremity edema and calf tenderness. Discharge Exam Constitutional WD/WN, vitals as above Eyes breathing unlabored Respiratory breathing unlabored Cardiovascular well perfused Psychiatric A+Ox3, euthymic affect Discharge Plan Discharge Items Patient Disposition: Home - Home Health Services Reason For Visit: ANKLE FRACTURE Discharge Diagnosis: Ankle fracture Activity: Resume your previous activity Non-emergency contact: Primary Care Provider Call non-emergency contact if: you have any medication questions and your sympto ms worsen Follow-up/Referrals: Tiffany Hills PA-C [Primary Care Provider] - 10/22/24 8:20 am Kevon Ocampo DO [Surgeon] - 10/24/24 10:45 am Diet: Regular Addtl Attending Provider Instructions: Mrs. Carbone, You were recently hospitalized for having issues with ambulation and your ankle fracture. You were evaluated by our physical therapy and occupational therapy teams during your stay. You were also evaluated by Dr. Ocampo, our foot and ankle specialist. Please see recommendations below regarding your discharge. During your stay, you were started on Zoloft to help with your mental health. Please continue this at discharge. Please follow up with Dr. Ocampo's office at discharge for continued care of your ankle. Their phone number is above if you need it. Please use Oxycodone 5mg every 6 hours as needed for pain. During your hospital stay you were on scheduled Tylenol 1000mg every 8 hours. - consider continuing this at home to help stay ahead of your pain. Please resume the remainder of your outpatient medications. Please continue on the Lovenox injections twice daily until you can fully bear weight again. Home health is being arranged for you so that you can continue to receive physical and occupational therapy upon discharge. If you develop any severe ankle pain please contact your surgeon for further care. Best of Clara reyes PA-C Pending Studies at Discharge: No Stand-Alone Forms: My [facility] [employer] I, Smoking Cessation Medications and DC Order Prescriptions: New sertraline 50 mg Tablet 50 mg PO HS Qty: 30 0RF oxycodone 5 mg Tablet 5 mg PO QID PRN (Reason: pain (scale score 7-10)) Qty: 20 0RF enoxaparin [Lovenox] 40 mg/0.4 mL Syringe 40 mg subcut BID Qty: 4 0RF Continued furosemide 40 mg tablet 40 mg PO DAILY melatonin 3 mg Tablet 3 mg PO HS PRN (Reason: Sleep) acetaminophen [Tylenol Extra Strength] 500 mg Tablet 1,000 mg PO Q8H PRN (Reason: Pain) spironolactone 25 mg tablet 25 mg PO DAILY methocarbamol 750 mg Tablet 750 mg PO BID PRN (Reason: MUSCLE SPASMS) amlodipine 10 mg tablet 10 mg PO DAILY metoprolol tartrate 50 mg tablet 50 mg PO BID omeprazole 20 mg Tablet,Delayed Release (Dr/Ec) 20 mg PO DAILY PRN (Reason: ACID STOMACH) Discontinued cefuroxime axetil 500 mg tablet 500 mg PO BID Rx Instructions: STARTED 09/28/24 FOR 7 DAYS oxycodone 5 mg tablet 5 mg PO QID PRN (Reason: Pain) enoxaparin 40 mg/0.4 mL syringe 40 mg subcut BID Rx Instructions: PER [facility] Discharge Orders: Discharge Order (Routine); Ordered 10/18/24 Ordered By: Clara Sanford/Other Patient Handouts: Enoxaparin Injectable Solution, Enoxaparin Prefilled Syringe, SubQ Injection Single Med Admission Data Admit Date/Time: 09/30/24 17:48 Attending Provider: Urvashi Villarreal Admit Provider: Reagan Malcolm Primary Care Provider: Tiffany Hills Other Providers: [place],[facility]; [facility]; Kevon Ocampo Other Interventions: Discharge Summary Assessment (RN) Last Done: 10/18/24 11:09 Hospital Stay Data Consultations 10/09/24 11:46 Consult Orthopedic Surgery Routine 10/12/24 11:27 Consult Behavioral Health Liaison Routine Diagnostic Imagining Performed 09/30/24 20:48 US venous doppler LE BI Routine Pending Results Patient Have Any Pending Studies at Discharge: No Discharge Instructions Given to Patient (Per Discharging Provider) Mrs. Carbone, Cl were recently hospitalized for having issues with ambulation and your ankle fracture. You were evaluated by our physical therapy and occupational therapy teams during your stay. You were also evaluated by Dr. Ocampo, our foot and ankle specialist. Please see recommendations below regarding your discharge. During your stay, you were started on Zoloft to help with your mental health. Please continue this at discharge. Please follow up with Dr. Ocampo's office at discharge for continued care of your ankle. Their phone number is above if you need it. Please use Oxycodone 5mg every 6 hours as needed for pain. During your hospital stay you were on scheduled Tylenol 1000mg every 8 hours. - consider continuing this at home to help stay ahead of your pain. Please resume the remainder of your outpatient medications. Please continue on the Lovenox injections twice daily until you can fully bear weight again. Home health is being arranged for you so that you can continue to receive physical and occupational therapy upon discharge. If you develop any severe ankle pain please contact your surgeon for further care. Best of Clara reyes PA-C Total Time Total Time Spent Total Time Spent (In Minutes): 45 Total Time Includes: Examination of the Patient, Discharge Planning, Medication Reconciliation and Communication With Other Providers Coding Level of Care Code 67443 INP/OBS DISCH >30 MIN Diagnoses Ankle fracture S82.899A Depression F32.A Hypertension I10 Venous stasis I87.8 DVT prophylaxis Z29.9
== END 2024-10-18 13:17 | disposition home health service (06) | DRG 563 ==
LOC: ED 12:25 → EDINP 17:48 → SUATTDRO 17:48 → 3W 20:41